=== PATIENT | female | born 1950 | race Caucasian/White ===

== ENCOUNTER 2022-02-28 05:37 | Inpatient (IN) | payer OTHER ==
[2022-02-23 09:35] LABS: Absolute Lymphocytes (CBC) 1.5 K/uL (0.7-4.9); Hematocrit 39.4 % (36.0-45.0); Lymphocytes % 20.4 % (15.3-44.8); MPV 7.5 fL (7.6-11.3); RBC Red Blood Cell Count 4.39 M/uL (3.86-4.86)
[2022-02-23 09:36] LABS: Protime INR 0.99
[2022-02-23 09:46] LABS: Albumin 3.7 g/dL (3.4-5.0); Bilirubin Total 0.5 mg/dL (0.2-1.0); Potassium 3.9 mmol/L (3.5-5.1); Protein, Total 7.4 g/dL (6.4-8.2)
[2022-02-23 09:48] LABS: Urine Appearance CLEAR (Clear); Urine Bilirubin NEGATIVE (Negative); Urine Blood NEGATIVE (Negative); Urine Color YELLOW (Yellow); Urine Glucose NEGATIVE (Negative); Urine Specific Gravity 1.015 (1.005-1.030); Urine pH 5.5 (5.0-7.0)
[2022-02-23 09:49] LABS: Urine Microscopic Reflex NO UMIC; Urine Protein NEGATIVE (Negative); Urine Urobilinogen 0.2 mg/dL (0.2-1.0)
--- NOTE | 2022-02-23 09:49 | RAD REPORT ---
EXAM DESCRIPTION: RAD - Chest Pa And Lat (2 Views) - 02/23/2022 9:34 am CLINICAL HISTORY: Pre op pending hip replacement COMPARISON: None TECHNIQUE: Frontal and lateral views of the chest were obtained. FINDINGS: The lungs are clear of failure, infiltrate or mass. Mild prominence of the interstitial pa ttern is baseline. Heart size is normal and central vasculature is within normal limits. No pleural effusion or pneu mothorax seen. No acute bone findings seen. Mid and lower thoracic spine degenerative changes are pr esent. Upper lumbar surgical hardware is partially imaged on the lateral view. Patient has neural sti mulator wires in the lower thoracic central canal. No acute aortic finding. IMPRESSION: No acute cardiopulmonary process. Nonacute findings detailed in the body of the report.
[2022-02-28] MEDS ORDERED: NA CHLORIDE 0.9% 1,000 ML ONE ×2 (05:59→10:48)
[2022-02-28] MEDS ORDERED: FENTANYL CITR 100 MCG/2 ML ONE (06:05)
[2022-02-28] MEDS ORDERED: LIDOCAINE 1% MPF 5 ML VIAL ONE (06:05)
[2022-02-28] MEDS ORDERED: BUPIVACAINE 0.75% (PF) 2 ML SP ONE (06:05)
[2022-02-28] MEDS ORDERED: CELECOXIB 100 MG CAPSULE ONE (06:16)
[2022-02-28] MEDS ORDERED: Oxycodone HCl/Acetaminophen 1 TAB TAB ONE (06:17)
[2022-02-28] MEDS ORDERED: GABAPENTIN 100 MG CAP ONE (06:17)
[2022-02-28] MEDS ORDERED: ACETAMINOPHEN 500 MG TAB ONE (06:17)
[2022-02-28] MEDS ORDERED: ROPLVACAINE HCL 40 ML ONE (06:43)
[2022-02-28] MEDS ORDERED: dexAMETHasone 10 MG/ML VIAL ONE (06:43)
[2022-02-28] MEDS ORDERED: propofoL 200 MG/20 ML VIAL IV ONE ×4 (06:50→10:02)
[2022-02-28] MEDS ORDERED: MIDAZOLAM HCL 2 MG/2 ML INJ ONE (06:51)
[2022-02-28] MEDS ORDERED: LIDOCAINE 2% MPF 5 ML VIAL ONE (06:51)
[2022-02-28] MEDS: CEFAZOLIN SODIUM 1 GM/VIAL ONE ×2 (07:32→07:48)
[2022-02-28] MEDS: TRANEXAMIC ACID 1,000 MG/10 ML VIAL IV ONE ×3 (07:32→07:50)
--- NOTE | 2022-02-28 09:42 | RAD REPORT ---
EXAM DESCRIPTION: RAD - Hip Right 1 View - 02/28/2022 9:36 am CLINICAL HISTORY: HARDWEAR PLACEMENT COMPARISON: No comparisons FINDINGS/IMPRESSION: Single intraoperative fluoroscopic image submitted. The right acetabular compon ent is intact. The femoral component appears subluxed superiorly. No periprosthetic fracture identifi ed.
[2022-02-28] MEDS ORDERED: DOCUSATE NA 100 MG CAP PO PRN (10:17)
[2022-02-28] MEDS ORDERED: ONDANSETRON 4 MG/2 ML VIAL IV PRN (10:17)
--- NOTE | 2022-02-28 10:17 | P.BOP ---
Preoperative diagnosis: right hip arthritis Postoperative diagnosis: same Primary procedure: right total hip arthoplasty Estimated blood loss: 200 ccs Anesthesia: Spinal Complications: None Transferred to: Recovery Room
[2022-02-28] MEDS ORDERED: Ringers Lactate 0 ML IV ONE (10:27)
[2022-02-28 11:05] LABS: Hematocrit 34.1 % (36.0-45.0)
[2022-02-28] MEDS: HYDROMORPHONE HCL 1 MG/ML INJ ONE ×2 (11:14→11:20)
--- OUTSIDE RECORDS SUMMARY | 2022-02-28 12:30 | XMS REPORT | Continuity of Care Document ---
:[address] [facility] t Address [address] [place] [address] Care Team Providers Name Role Phone Milagros Stephan Primary Care Physician Doctor Unassigned, [place] Attending Clinician Unavailable Danita Walters Attending Clinician Payers Payer Name Policy Type Policy Number Effective Date Expiration Date S ource Problems Condition Condition Condition Status Onset Resolution Last Treating Co mments Source Name Details Category Date Date Treatment Clinician Date No known No known Disease Unive rs active active ity of problems problems [facility] Allergies, Adverse Reactions, Alerts Allergy Allergy Status Severity Reaction(s) Onset Inactive Treating Comm ents Source Name Type Date Date Clinician Adhesive Propensi Active Rash 2020-10 Univer s [place] ty to 0-19 ity of icones adverse 00:00: [place] reaction 00 Medical s [place] Alprazol Propensi Active Swelling legs Univ ers am ty to 9-22 ity of adverse 00:00: [place] reaction 00 Medical s [place] Social History Social Habit Start Date Stop Date Quantity Comments Source Exposure to 2022-02-04 2022-02-14 Not sure [facility] SARS-CoV-2 (event) 00:00:00 10:21:00 Medica l [place] Tobacco Comment 2021-07-26 2021-07-26 half ppd [facility] 00:00:00 00:00:00 Medical [place] Tobacco use and 2021-01-10 2021-01-10 Never used [facility] exposure 00:00:00 00:00:00 Medical Branch Sex Ass[birth year] At [birth year] [facility] 00:00:00 00:00:00 Medical Branch Smoking Status Start Date Stop Date Source Current every day smoker 2021-01-10 00:00:00 [facility] [place] [facility] Medications Ordered Filled Start Stop Current Ordering Indication Dosage Frequency Signature Comments Components Source Medication Medication Date Date Medication? Clinician (SIG) Name Name diclofenac Yes 50mg Take 50 mg U nivers 50 mg EC 5-10 by mouth 2 ity o f tablet 10:48: (two) [place] [address] times Medical daily. Branch gabapentin 0 Yes 600mg Take 600 Un eliseo ER 300 mg 5-10 mg by ity of tablet, 10:48: mouth at [place] [address] bedtime. Medical release 24 Branch hr DULoxetine 2021- Yes Take by Uni vers 30 mg CDRS 5-10 mouth ity of 10:48: daily. Medical Branch atorvastati 0 Yes 40mg Take 40 mg Univers n 40 mg 5-10 by mouth ity of tablet 10:48: at [place] [address] bedtime. Medical Branch diltiazem 2021-0 Yes 120mg Take 120 Uni vers XR 120 mg 5-10 mg by ity of 24 hr 10:48: mouth [place] capsule 04 daily. Medical Branch amLODIPine 2021-0 Yes 10mg Take 10 mg U nivers 10 mg 5-10 by mouth ity of tablet 10:48: daily. Medical Branch diclofenac 2021- Yes 50mg Take 50 mg U nivers 50 mg EC 5-10 by mouth 2 ity o f tablet 10:48: (two) [place] [address] times Medical daily. Branch gabapentin Yes 600mg Take 600 Un eliseo ER 300 mg 5-10 mg by ity of tablet, 10:48: mouth at [place] [address] bedtime. Medical release 24 Branch hr DULoxetine 2021-0 Yes Take by Uni vers 30 mg CDRS 5-10 mouth ity of 10:48: daily. Medical Branch atorvastati 2021-0 Yes 40mg Take 40 mg Univers n 40 mg 5-10 by mouth ity of tablet 10:48: at [place] [address] bedtime. Medical Branch diltiazem 2021-0 Yes 120mg Take 120 Uni vers XR 120 mg 5-10 mg by ity of 24 hr 10:48: mouth [place] capsule 04 daily. Medical Branch amLODIPine Yes 10mg Take 10 mg U nivers 10 mg 5-10 by mouth ity of tablet 10:48: daily. [address] omeprazole 2020-10 Yes 20mg Take 20 mg U nivers 20 mg 0-20 by mouth ity of capsule 13:55: daily. [address] olmesartan 2020-10 Yes 40mg Take 40 mg U nivers 40 mg 0-20 by mouth ity of tablet 13:55: daily. [address] metoprolol 2020-10 Yes 25mg Take 25 mg U nivers succinate 0-20 by mouth ity of XL 25 mg 24 13:55: [place]. [place] hr tablet 08 [facility] insulin 2020-10 Yes 48U inject 48 Unive rs glargine 0-20 Units ity of (LANTUS 13:55: under the [place] U-100 08 skin at [facility] INSULIN) bedtime. Branch 100 unit/mL injection omeprazole 2020-10 Yes 20mg Take 20 mg U nivers 20 mg 0-20 by mouth ity of capsule 13:55: daily. [address] olmesartan 2020-10 Yes 40mg Take 40 mg U nivers 40 mg 0-20 by mouth ity of tablet 13:55: daily. [address] metoprolol 2020-10 Yes 25mg Take 25 mg U nivers succinate 0-20 by mouth ity of XL 25 mg 24 13:55: [place]. [place] tablet 08 [facility] insulin 2020-10 Yes 48U inject 48 Unive rs glargine 0-20 Units ity of (LANTUS 13:55: under the [place] U-100 08 skin at [facility] INSULIN) bedtime. Branch 100 unit/mL injection naproxen 2020-0 Yes 550mg Take 1 Uni vers sodium 9-22 tablet by ity of (ANAPROX 00:00: mouth 2 [place] DS) 550 mg 00 (two) Medical tablet times [place] daily with meals. methylPREDN 2020-0 Yes Take by Univers ISolone 9-22 mouth ity of (MEDROL, 00:00: SEE-INSTRU [place] JOSE,) 4 mg 00 CTIONS. Medica l tablets follow Branch package directions naproxen 2020-0 Yes 550mg Take 1 Uni vers sodium 9-22 tablet by ity of (ANAPROX 00:00: mouth 2 [place] DS) 550 mg 00 (two) Medical tablet times [place] daily with meals. methylPREDN 2020-0 Yes Take by [facility] ISolone 06-29 mouth ity of (MEDROL, 00:00: SEE-INSTRU [place] as JOSE,) 4 mg 00 CTIONS. Medica l tablets follow Branch package directions Immunizations Ordered Filled Immunization Date Status Comments [facility] e Immunization Name Name SARS-COV-2 COVID-19 2021-09-25 Completed Unive rsity of PFIZER VACCINE 00:00:00 [facility] SARS-COV-2 COVID-19 2021-09-25 Completed Unive rsity of PFIZER VACCINE 00:00:00 [facility] Td 2021-06-09 Completed [facility] 00:00:00 [facility] Td 2021-06-09 Completed [facility] 00:00:00 [facility] SARS-COV-2 COVID-19 2021-03-14 Completed Unive rsity of PFIZER VACCINE 00:00:00 [facility] SARS-COV-2 COVID-19 2021-03-14 Completed Unive rsity of PFIZER VACCINE 00:00:00 [facility] SARS-COV-2 COVID-19 2021-02-21 Completed Unive rsity of PFIZER VACCINE 00:00:00 [facility] SARS-COV-2 COVID-19 2021-02-21 Completed Unive rsity of PFIZER VACCINE 00:00:00 [facility] Vital Signs Vital Name Observation Time Observation Value Comments Source Systolic blood 2022-02-14 15:47:00 114 mm[Hg] Univer sity of pressure [facility] Diastolic blood 2022-02-14 15:47:00 70 mm[Hg] Unive rsity of pressure [facility] Heart rate 2022-02-14 15:47:00 86 /min [facility] Body temperature 2022-02-14 15:47:00 36.67 [place] Respiratory rate 2022-02-14 15:47:00 16 /min [facility] Body height 2022-02-14 15:47:00 149.9 cm [facility] Body weight 2022-02-14 15:47:00 82.555 kg Universi ty of [facility] BMI 2022-02-14 15:47:00 36.76 kg/m2 Universi ty [facility] Oxygen saturation in 2022-02-14 15:47:00 98 /min [facility] Arterial blood by [facility] Pulse oximetry [place] Procedures Procedure Date / Time Performed Performing Clinician Sourc e EXTERNAL PROVIDER 2022-02-25 05:01:00 Doctor Unassigned, No Univ [facility] RECORDS Name Medical Branch Encounters Start End Encounter Admission Attending Care Care Encounter Source Date/Time Date/Time Type Type Clinicians Facility Department ID 2021-12-28 Outpatient [facility] [id number] Common 09:55:06 Spirit - [facility] 2022-02-25 2022-02-25 Orders Doctor ANETA [id number] Univers 00:00:00 00:00:00 Only Unassigned, DON [id number] ity of [place] [facility] [id number] Asim as [id number] [place] [address] Branch 2022-02-14 2022-02-14 Office NATALIE Lerner [id number] Univers 11:00:00 11:30:00 Visit [facility] [id number] i ty of CLEAR [id number] [place] URRUTIA [id number] [place] [address] Branch OFFICE BUILDING Results This patient has no known results.
[2022-02-28] MEDS ORDERED: D50W 25 GM/50 ML SYRINGE IV PRN (15:19)
[2022-02-28] MEDS ORDERED: GLUCAGON 1 MG/VIAL IM PRN (15:19)
--- NOTE | 2022-02-28 15:29 | P.CNS ---
Date of Consult: 02/28/22 Reason for Consult: Medical Management Requesting Physician: Diaz Londono Chief Complaint: Right Hip pain History of Present Illness: Patient is 71-year-old female with a past medical history significant for CKD3, DM 2, HLD, hypertension, GERD, osteoarthritis, [place] who presented to the hospital for right hip replacement. Patient has been having persistent right hip pain that has not responded to conservative therapies. Pain has become debilitating. Patient agreed with her orthopedic surgeon to have surgery and patient subsequently had a right total hip replacement. Patient successfully tolerated the right hip arthroplasty surgery. Patient currently rates right hip pain as 8/10 in severity and described pain as aching in quality. Patient denies any other signs or symptoms. Symptoms are aggravated or relieved by nothing. The hospitalist team was consulted for medical management. Allergies adhesive tape Allergy (Verified 02/23/22 08:37) Rash alprazolam [From Xanax] Allergy (Verified 02/23/22 08:37) Leg Swelling Home Medications: Amlodipine Besylate 10 mg PO BEDTIME 02/23/22 Diclofenac Sodium 100 mg PO BEDTIME 02/23/22 Dulaglutide [Trulicity] 1.5 mg SQ EVERY 7TH DAY 02/23/22 Duloxetine HCl 30 mg PO BEDTIME 02/23/22 Empagliflozin [Jardiance] 25 mg PO DAILY WITH BREAKFAST 02/23/22 Gabapentin 600 mg PO BEDTIME 02/23/22 Hydroxychloroquine [Plaquenil] 200 mg PO BID 02/23/22 Insulin Glargine,Hum.rec.anlog [Lantus] 40 unit SQ BEDTIME 02/23/22 Metoprolol Succinate [Toprol Xl] 25 mg PO BEDTIME 02/23/22 Olmesartan Medoxomil [Benicar] 40 mg PO BEDTIME 02/23/22 Omeprazole 20 mg PO BEDTIME 02/23/22 - Past Medical/Surgical History Diabetic: Yes -: stage 3 kidney disease -: diabetes -: hypertension -: hypercholesterolemia -: arthritis -: GERD -: back surgery -: neck surgery -: bilateral carpal tunnel -: appendectomy -: nasal fracture surgery -: cyst removal from top of head - Family History Father Medical History: Heart disease, Other (see notes) Notes: heart attack, abdominal aneurysm Mother Medical History: Other (see notes) Notes: Parkinson's Sister Medical History: Diabetes - Social History Smoking Status: Current every day smoker Smoking therapy provided: Yes Patient receptive to therapy: Yes Alcohol use: No CD- Drugs: No Caffeine use: Yes Place of Residence: Home Review of Systems General: Unremarkable Eyes: Unremarkable Respiratory: Unremarkable Cardiovascular: Unremarkable Gastrointestinal: Unremarkable Genitourinary: Unremarkable Musculoskeletal: Other (Right hip pain ) Neurological: Unremarkable Lymphatics: Unremarkable Physical Examination Temp Pulse Resp BP Pulse Ox 96.5 F L 81 18 139/62 93 02/28/22 12:53 02/28/22 12:53 02/28/22 12:53 02/28/22 12:53 02/28/22 12:53 General: Alert, Oriented x3 HEENT: PERRLA Neck: Supple, 2+ carotid pulse no bruit, Without JVD or thyroid abnormality Respiratory: Clear to auscultation bilaterally, Normal air movement Cardiovascular: Normal pulses, Regular rate/rhythm Capillary refill: <2 Seconds Gastrointestinal: Normal bowel sounds, Soft and benign Musculoskeletal: Tenderness (Right hip) Integumentary: No rashes, No breakdown, No significant lesion Neurological: Normal speech, Normal reflexes 2+, Normal affect Lymphatics: No axilla or inguinal lymphadenopathy Laboratory Data (last 24 hrs) 02/28/22 10:59: Hgb 12.0, Hct 34.1 L Conclusions/Impression: -- Right hip pain. Status post right total hip arthroplasty. Surgeon on board. PT tlal. Will await further recommendation from orthopedic surgeon. Continue supportive care. --Acute pain\osteoarthritis. We will manage pain on current pain medication regimen. --DM2 With neuropathy. BS monitoring with sliding scale insulin. Continue gabapentin for her neuropathy. --Hypertension. Stable. Continue home medications. --GERD. Continue home medications. --HLD. Continue home medication. --Nicotine dependence. Patient placed on nicotine patch and counseled on tobacco cessation. --CKD 3A. Baseline functions unknown. We will continue to monitor renal functions. -- History of LA. Continue aspirin, statin. --Class II obesity. Likely secondary to sedentary lifestyle and excess calories intake. Patient counseled on weight reduction, diet and exercise therapy --Social service consult initiated for discharge planning.. Patient reports that she lives alone and will need some help. --DVT prophylaxis with SCDs . Physician Review: Patient Assessed, Agree with Above Assessment and Plan Critical Care: No
[2022-02-28] MEDS ORDERED: D10W 125 ML IV PRN (15:42)
[2022-02-28] MEDS: INSULIN -REGULAR HUMAN 50 UNIT/0.5 ML ML SQ SCH ×2 (16:30→20:54)
[2022-02-28] MEDS: HYDROCODONE/APAP 7.5/325 MG TAB PO PRN (17:20)
[2022-02-28] MEDS: CEFAZOLIN 1 GM in NA CHLORIDE 0.9% 50 ML IVPB SCH (17:21)
[2022-02-28 17:41] LABS: Hematocrit 39.8 % (36.0-45.0)
[2022-02-28 19:00] VITALS: BMI 36.7
[2022-02-28] MEDS: PANTOPRAZOLE 40MG TABLET PO SCH (20:53)
[2022-02-28] MEDS: DULOXETINE 30 MG CAP PO SCH (20:53)
[2022-02-28] MEDS: GABAPENTIN 300 MG CAP PO SCH (20:53)
[2022-02-28] MEDS: METOPROLOL XL 25 MG TAB PO SCH (20:54)
[2022-02-28] MEDS: INSULIN GLARGINE 100 UNIT/ML SQ SCH (20:55)
--- NOTE | 2022-02-28 20:57 | OP ---
Date of Procedure: 02/28/2022 Surgeon: Diaz Londono MD Preoperative Diagnosis: Severe right hip arthritis. Postoperative Diagnosis: Severe right hip arthritis. Procedure: Right total hip arthroplasty using the [place] system and dual mobility bearing. Estimated Blood Loss: 200 cc. There were no complication. Indication For Operation: Ms. Dupont is a patient who came to see me with complaints of pain in the groin. She has had multiple spinal surgeries, however. Pain appears to be most consistent with pain generated from the hip. She is noted to have a hip flexion contracture as well as very limited inte rnal and external rotation. X-rays demonstrate significant degenerative changes of the hip. It shou ld be noted that she is only 4 feet 11 inches as well. She has tried conservative management; jessenia hudson, the pain is more or less debilitating and risks, benefits, and alternatives of total hip arthropla sty have been discussed with her. She states she understands things as presented and wished to proce ed. Description Of Procedure: Patient was taken to the operating room and placed in supine position. Ge neral anesthesia was obtained by staff. Following this, she was rolled left side down with an axilla ry roll. She was then properly positioned using hip positioners. It should be noted that her hip ma intains approximately 5 degrees hip flexion contracture, making it somewhat difficult with abduction as well as rotation. This makes positioning of her hip a little difficult. However, her right lower extremity was then prepped and draped in the usual sterile fashion. After this, a posterolateral in cision was then taken down carefully through skin and soft tissues, a significant amount of adipose t issue. However, the correct plane was identified and a small incision was made within the fascia. T he gluteal tendon was palpated to ensure correct position. This incision was then carried up to the tip of the greater trochanter and then curved gently posteriorly. After this, the sciatic nerve was palpated. It was noted to be superficial to the external rotators as an anatomic variant. Great car e was taken to protect this throughout the case and is recognized essentially immediately and the Nancy rnley was placed carefully. After this, the external rotators and capsule were then taken down caref dyanaly and tagged for later repair. The superior aspect of the labrum as well as superior anterior asp ect of the labrum was quite hypertrophic. However, the labrum was removed circumferentially. It katy uld be noted that the bursa is somewhat adhered anteriorly and after the hip was dislocated and the n eleno cut was made in standard fashion, the head was removed. After this, the soft tissue within the a cetabulum was then removed. She is still somewhat tight anteriorly. A small amount of capsule was r eleased, however, did not want to be overly aggressive. After this, the head was measured and it was then reamed up to a size 47 where we had good circumferential bleeding bone. The cup was then place d in standard fashion. Attention was then turned to the femur and the preparing box tender was used followed b y the canal-finding reamer followed by sequential broaching to a size 3. This appeared to fit very w ell. An x-ray was taken at this point, and the components were evaluated. The cut might be slightly more vertical than I would like. However, I believe it matches the anatomy well and appears good wi th visualization. There also may be some pelvic obliquity, which changes the alignment. The stem it self appeared to fill very good and decision was made to continue along with this set up. The monito r was then placed. Final stem was then placed down. It was trialed with the standard ball, which wa s the shortest. We could use. It was somewhat difficult to relocate it with the hip in extension. However, bringing the hip off the flexion causes a significant amount of loosening allowed for reloca tion. Hip was able to come back to approximately 10 degrees past neutral with some over pressure ext ending to approximately 3-5 degrees flexion without any over pressure. There was found to be no late ral shuck or inferior shuck. There was consideration given to the following possibilities, which wer e perhaps further loosening of the anterior capsule or hip flexors. It was decided this is most like ly a physiological contraction of the tissues and felt that this would be better served without furth er loosening of the stabilizers of the hip. Also, consideration was made for perhaps replacing this with a shorter neck cut and perhaps taking the stem deeper probably this being a size down. However, this is also discounted as this may cause instability especially posteriorly. It does come up to gr eater than 90 degrees, full adduction, internal rotation to at least 45 degrees before signs of dislo cation and it was decided that we will use this as our final construct, well aware that this may be s lightly long as it is difficult to mixer runner and also understanding that there is a hip flexion contractu re, perhaps associated with significant anterior pelvic tilt as this does appear to be physiologic re lease for her. After this, the trial ball was removed. The final ball was then tapped into place. It was then relocated in the hip. This has a same range of motion and instability. The wound was co piously irrigated and the external rotators and capsule were then repaired back to the greater trocha nter via bone tunnels with care taken not to impinge upon the sciatic nerve. The wound was again irr igated. The fascia was closed in a watertight fashion using heavy Vicryl sutures. Skin was then kirstie sed using Vicryl sutures, followed by abdirizak. Patient was then placed in Aquacel dressing, awakened , and taken to recovery room. /SHANE Voice ID: [id number] Report ID: [id number]
[2022-02-28] MEDS: HYDROXYCHLOROQUINE 200MG TAB PO SCH (20:58)
[2022-02-28] MEDS ORDERED: AMLODIPINE 10 MG TAB PO SCH (21:00)
[2022-02-28] MEDS ORDERED: INSULIN GLARGINE 100 UNIT/ML SQ SCH (21:00)
[2022-02-28] MEDS ORDERED: VALSARTAN 160 MG TAB PO SCH (21:00)
[2022-02-28] MEDS ORDERED: HYDRALAZINE HCL 20 MG/ML VIAL IV PRN (23:46)
[2022-03-01] MEDS: CEFAZOLIN 1 GM in NA CHLORIDE 0.9% 50 ML IVPB SCH ×2 (01:36→09:24)
[2022-03-01] MEDS: HYDROCODONE/APAP 7.5/325 MG TAB PO PRN ×3 (01:39→13:46)
[2022-03-01 04:10] LABS: Absolute Lymphocytes (CBC) 0.7 K/uL (0.7-4.9); Hematocrit 34.5 % (36.0-45.0); Lymphocytes % 8.1 % (15.3-44.8); MPV 7.9 fL (7.6-11.3); RBC Red Blood Cell Count 3.76 M/uL (3.86-4.86)
[2022-03-01 04:18] LABS: Potassium 4.8 mmol/L (3.5-5.1)
[2022-03-01] MEDS: INSULIN -REGULAR HUMAN 50 UNIT/0.5 ML ML SQ SCH ×4 (07:30→21:33)
[2022-03-01] MEDS: (Empagliflozin [Jardiance] 25 MG Tablet) PO SCH (08:00)
[2022-03-01] MEDS ORDERED: HYDROXYCHLOROQUINE 200MG TAB PO SCH (09:00)
[2022-03-01] MEDS: ENOXAPARIN 40 MG/0.4 ML SQ SCH (09:24)
[2022-03-01] MEDS: NICOTINE 21 MG/PAT TD SCH (09:25)
[2022-03-01] MEDS: HYDROXYCHLOROQUINE 200MG TAB PO SCH ×2 (09:25→21:40)
--- NOTE | 2022-03-01 09:36 | P.PN ---
Subjective Date of Service: 03/01/22 Chief Complaint: Right Hip pain Subjective: No new changes, Tolerating diet Physical Examination - Vital Signs Temperature: 98.2 F Blood Pressure: 98/34 Pulse: 89 Respirations: 18 Pulse Ox (%): 98 - Physical Exam General: Alert, In no apparent distress, Oriented x3, Obese HEENT: Atraumatic, Normocephalic, PERRLA Neck: Supple, 2+ carotid pulse no bruit, JVD not distended Respiratory: Clear to auscultation bilaterally, Normal air movement Cardiovascular: No edema, Normal pulses, Regular rate/rhythm, Normal S1 S2 Gastrointestinal: Normal bowel sounds, Soft and benign, Non-distended Musculoskeletal: No clubbing, No swelling, Other (clean dsg over right hip ) Neurological: Normal speech, Normal strength at 5/5 x4 extr, Normal tone - Studies Laboratory Data (last 24 hrs) 03/01/22 03:27: Sodium 137, Potassium 4.8, BUN 15, Creatinine 1.31 H, Glucose 199 H 03/01/22 03:27: WBC 8.8 D, Hgb 11.7 L, Hct 34.5 L, Plt Count 214 D 02/28/22 17:18: Hgb 13.2, Hct 39.8 D 02/28/22 10:59: Hgb 12.0, Hct 34.1 L Assessment And Plan Physician Review: Patient Assessed, Agree with Above Assessment and Plan Physician Review Additional Text: Impression Status post right hip arthroplasty Hypertension Diabetes mellitus History of chronic pain syndrome History of CKD Plan Borderline low blood pressure this a.m., may be due to restart of meds and pain regimen Will hold Diovan/amlodipine Continue metoprolol for now Start gentle IV fluid Restarted on hypoglycemic meds, continue insulin sliding scale Glucose at target Continue anticoagulation per surgical team Continue pain regimen Noted mild elevation in creatinine, follow with hold Diovan gentle IV fluid Time Spent Managing PTS Care (In Minutes): 30
[2022-03-01] MEDS: NA CHLORIDE 0.9% 1,000 ML IV SCH (13:52)
[2022-03-01] MEDS: PANTOPRAZOLE 40MG TABLET PO SCH (21:33)
[2022-03-01] MEDS: GABAPENTIN 300 MG CAP PO SCH (21:33)
[2022-03-01] MEDS: DULOXETINE 30 MG CAP PO SCH (21:33)
[2022-03-01] MEDS: METOPROLOL XL 25 MG TAB PO SCH (21:33)
[2022-03-01] MEDS: INSULIN GLARGINE 100 UNIT/ML SQ SCH (21:52)
[2022-03-02] MEDS: NA CHLORIDE 0.9% 1,000 ML IV SCH (01:08)
[2022-03-02] MEDS: HYDROCODONE/APAP 7.5/325 MG TAB PO PRN ×3 (05:40→16:49)
[2022-03-02 06:16] LABS: Absolute Lymphocytes (CBC) 0.7 K/uL (0.7-4.9); Hematocrit 29.4 % (36.0-45.0); Lymphocytes % 7.9 % (15.3-44.8); RBC Red Blood Cell Count 3.22 M/uL (3.86-4.86)
[2022-03-02 06:28] LABS: Potassium 4.1 mmol/L (3.5-5.1)
[2022-03-02] MEDS: INSULIN -REGULAR HUMAN 50 UNIT/0.5 ML ML SQ SCH ×4 (07:30→21:35)
[2022-03-02] MEDS: (Empagliflozin [Jardiance] 25 MG Tablet) PO SCH (08:00)
--- NOTE | 2022-03-02 08:17 | P.PN ---
Subjective Date of Service: 03/02/22 Chief Complaint: Right Hip pain Subjective: No new changes, No C/O voiced Physical Examination - Vital Signs Temperature: 97.9 F Blood Pressure: 124/53 Pulse: 57 Respirations: 18 Pulse Ox (%): 92 - Studies Laboratory Data (last 24 hrs) 03/02/22 05:40: Sodium 136, Potassium 4.1, BUN 16, Creatinine 1.20, Glucose 191 H 03/02/22 05:40: WBC 9.3, Hgb 9.9 L, Hct 29.4 L, Plt Count 185 Microbiology Data (last 24 hrs): 02/23/22 09:00 Nasopharnyx Coronavirus COVID-19 PCR - Final Assessment And Plan Physician Review: Patient Assessed, Agree with Above Assessment and Plan Physician Review Additional Text: Impression Status post right hip arthroplasty Hypertension Diabetes mellitus History of chronic pain syndrome History of CKD Plan Improved blood pressure, continue to hold Diovan/Norvasc Continue metoprolol Glucose level controlled, continue home hypoglycemic regimen Continue Accu-Cheks with insulin sliding scale We DC IVF, remove Borrego today Follow PT/case management per surgical team Continue wound carehealing well Continue postop prophylaxis anticoagulation per surgical team Continue pain regimen Creatinine trending down, continue to hold Diovan, follow with off IVF today H&H trended down to 9.1, due to postop, start iron tabs DC home/rehab as needed per surgical team Time Spent Managing PTS Care (In Minutes): 30
[2022-03-02] MEDS ORDERED: POLYETHYL GLY 3350 17 GM/DOSE PO PRN (08:18)
[2022-03-02] MEDS: NICOTINE 21 MG/PAT TD SCH (09:18)
[2022-03-02] MEDS: ENOXAPARIN 40 MG/0.4 ML SQ SCH (09:20)
[2022-03-02] MEDS: HYDROXYCHLOROQUINE 200MG TAB PO SCH ×2 (09:24→21:25)
[2022-03-02] MEDS: FERROUS GLUCONATE 324 MG TAB PO SCH ×2 (09:25→16:46)
[2022-03-02] MEDS ORDERED: ALBUMIN HUMAN 25% 100 ML IV ONE (11:45)
--- NOTE | 2022-03-02 16:31 | P.PN ---
Date of Service: 03/02/22 Pt seen, comfortable in bed, Heels nontender, ehl/ta/pf strong. Has some hip pain (expected) when up. Dressing CDI. Has walked in room with PT. D/C planning: Text message sent to me at 9:45 am, regarding peer to peer for snf denial to be done before 12. Not seen as don't constantly carry phone when seeing patients in clinic. Recommend calling phone or calling office to ensure these kind of time sensitive matters addressed. Spoke with patient regarding plan and she will do as best she can in therapy, perhaps try for d/c tomorrow. All questions answered.
[2022-03-02] MEDS: GABAPENTIN 300 MG CAP PO SCH (21:24)
[2022-03-02] MEDS: PANTOPRAZOLE 40MG TABLET PO SCH (21:24)
[2022-03-02] MEDS: METOPROLOL XL 25 MG TAB PO SCH (21:24)
[2022-03-02] MEDS: DULOXETINE 30 MG CAP PO SCH (21:25)
[2022-03-02] MEDS: INSULIN GLARGINE 100 UNIT/ML SQ SCH (21:35)
[2022-03-02 22:10] VITALS: O2SAT 96
[2022-03-03 04:47] LABS: Hematocrit 29.7 % (36.0-45.0)
[2022-03-03] MEDS: INSULIN -REGULAR HUMAN 50 UNIT/0.5 ML ML SQ SCH ×2 (07:30→11:30)
[2022-03-03] MEDS: (Empagliflozin [Jardiance] 25 MG Tablet) PO SCH (08:00)
[2022-03-03] MEDS: NICOTINE 21 MG/PAT TD SCH (09:56)
[2022-03-03] MEDS: ENOXAPARIN 40 MG/0.4 ML SQ SCH (09:56)
[2022-03-03] MEDS: FERROUS GLUCONATE 324 MG TAB PO SCH (09:56)
[2022-03-03] MEDS: HYDROXYCHLOROQUINE 200MG TAB PO SCH (09:57)
[2022-03-03 13:34] VITALS: BP 120/56; TEMP 97.2
--- NOTE | 2022-03-03 15:21 | P.DS ---
Admission Date: 03/02/22 Discharge Date: 03/03/22 Disposition: DC HOME/HOME HEALTH CARE Discharge Condition: FAIR Reason for Admission: Right Hip pain Hospital Course: Patient with hypertension diabetes admitted for right hip arthroplasty electively. Postop she is doing well but having weakness. Attempt to place patient seen rehab was unsuccessful. She will be sent home with home PT. Vital Signs/Physical Exam: Temp Pulse Resp BP Pulse Ox 97.2 F 100 H 16 120/56 L 95 03/03/22 12:00 03/03/22 12:00 03/03/22 12:00 03/03/22 12:00 03/03/22 12:00 General: Alert, In no apparent distress, Oriented x3 HEENT: Atraumatic, Normocephalic, PERRLA Neck: Supple, 2+ carotid pulse no bruit Respiratory: Clear to auscultation bilaterally, Normal air movement Cardiovascular: Normal pulses, Regular rate/rhythm Gastrointestinal: Normal bowel sounds, Soft and benign, Non-distended Integumentary: No tenderness/swelling Neurological: Normal speech, Normal strength at 5/5 x4 extr Laboratory Data at Discharge: WBC 9.3 K/uL (4.3-10.9) 03/02/22 05:40 Hgb 10.0 g/dL (12.0-15.0) L 03/03/22 03:55 Hct 29.7 % (36.0-45.0) L 03/03/22 03:55 Plt Count 185 K/uL (152-406) 03/02/22 05:40 PT 10.9 SECONDS (9.5-12.5) 02/23/22 09:05 INR 0.99 02/23/22 09:05 APTT 35.5 SECONDS (24.3-36.9) 02/23/22 09:05 Sodium 136 mmol/L (136-145) 03/02/22 05:40 Potassium 4.1 mmol/L (3.5-5.1) 03/02/22 05:40 BUN 16 mg/dL (7-18) 03/02/22 05:40 Creatinine 1.20 mg/dL (0.55-1.3) 03/02/22 05:40 Glucose 191 mg/dL (74-106) H 03/02/22 05:40 Total Bilirubin 0.5 mg/dL (0.2-1.0) 02/23/22 09:05 AST 15 U/L (15-37) 02/23/22 09:05 ALT 27 U/L (12-78) 02/23/22 09:05 Alkaline Phosphatase 72 U/L (45-117) 02/23/22 09:05 Home Medications: Amlodipine Besylate 10 mg PO BEDTIME 02/23/22 Dulaglutide [Trulicity] 1.5 mg SQ EVERY 7TH DAY 02/23/22 Duloxetine HCl 30 mg PO BEDTIME 02/23/22 Empagliflozin [Jardiance] 25 mg PO DAILY WITH BREAKFAST 02/23/22 Gabapentin 600 mg PO BEDTIME 02/23/22 Hydroxychloroquine [Plaquenil*] 200 mg PO BID 02/23/22 Insulin Glargine,Hum.rec.anlog [Lantus] 40 unit SQ BEDTIME 02/23/22 Metoprolol Succinate [Toprol Xl*] 25 mg PO BEDTIME 02/23/22 Olmesartan Medoxomil [Benicar] 40 mg PO BEDTIME 02/23/22 Omeprazole 20 mg PO BEDTIME 02/23/22 Diet: Low sodium Followup: Diaz Londono MD [ACTIVE - CAN ADMIT] - (Call to schedule appointment.) Stephan Linares FNP [Primary Care Provider] - (Call to schedule appointment.) Time spent managing pt's care (in minutes): 35
--- NOTE | 2022-03-03 15:23 | P.PN ---
Subjective Date of Service: 03/03/22 Chief Complaint: Right Hip pain Subjective: No new changes Physical Examination - Vital Signs Temperature: 97.2 F Blood Pressure: 120/56 Pulse: 100 Respirations: 16 Pulse Ox (%): 95 - Physical Exam General: Alert, In no apparent distress, Oriented x3, Obese HEENT: Atraumatic, Normocephalic, PERRLA Respiratory: Clear to auscultation bilaterally, Normal air movement Gastrointestinal: Normal bowel sounds, Soft and benign, Non-distended Musculoskeletal: No clubbing, No swelling, Other (clean dsg over right hip) - Studies Laboratory Data (last 24 hrs) 03/03/22 03:55: Hgb 10.0 L, Hct 29.7 L Assessment And Plan Physician Review: Patient Assessed, Agree with Above Assessment and Plan Physician Review Additional Text: Impression Status post right hip arthroplasty Hypertension Diabetes mellitus History of chronic pain syndrome History of CKD Plan Resolve hypertension, can continue Diovan/Norvasc/Toprol Controlled glucose, follow discharge planning Continue PT and OT eval and plan for SNF or dc home with PT Continue wound carehealing well Continue postop prophylaxis anticoagulation per surgical team Continue pain regimen Creatinine trending down, continue to hold Diovan, follow with off IVF today H&H improved to 10, c/w iron tabs
== END 2022-03-03 15:16 | disposition home health service (06) | DRG 470 ==
LOC: OR 05:37 → 2ND 12:27 → OBSVTOIN 03-02 16:24
PROVIDERS: ADMIT Orthopaedic Surgery; ATTEND Orthopaedic Surgery
PROC: 0SR901A Replacement of Right Hip Joint with Metal Synthetic Substitute, Uncemented, Open Approach (ICD-10-PCS; principal; 2022-02-28 07:00)
DX: M16.11 Unilateral primary osteoarthritis, right hip (principal); I12.9 Hypertensive chronic kidney disease with stage 1 through stage 4 chronic kidney disease, or unspecified chronic kidney disease; E11.22 Type 2 diabetes mellitus with diabetic chronic kidney disease; N18.31 Chronic kidney disease, stage 3a; I25.2 Old myocardial infarction; E66.9 Obesity, unspecified; Z68.36 Body mass index [BMI] 36.0-36.9, adult; E11.40 Type 2 diabetes mellitus with diabetic neuropathy, unspecified; F17.210 Nicotine dependence, cigarettes, uncomplicated; E78.5 Hyperlipidemia, unspecified; K21.9 Gastro-esophageal reflux disease without esophagitis; Z20.822 Contact with and (suspected) exposure to COVID-19
CPT/HCPCS: 36415; 71046; 80048; 80053; 81003; 82947; 85014; 85018; 85025; 85610; 85730; 86850; 86900; 86901; 88305; 88311; 97110; 97116; 97161; 97530; G0378; G0379; J0690; J1100; J1170; J1650; J1815; J2250; J2704; J2795; J3010; J7030; J7120; P9047; U0002

== ENCOUNTER 2024-11-08 16:17 | Emergency (ER) | payer OTHER ==
--- OUTSIDE RECORDS SUMMARY | 2024-11-08 16:22 | XMS REPORT | Continuity of Care Document ---
Author Name Unknown Address [address] [facility] [address] [place] [address] [facility] Address [address] [facility] [address] [place] [address] Care Team Providers Care Restaurant Operations Manager Name Role Phone Marco Ajorge Stephan Primary Care Physician [phone] LOTUS SMALL Attending Clinician DIAZ Corona Attending Clinician Unava ilthomas Omagelvai LOG RIDER, Beata Attending Clinician [phone] BEATA VEE Attending Clinician Unavailberonica e Unknown, Attending Attending Clinician Unavailab le RADIOLOGY Attending Clinician Unavailable Radiology Attending Clinician Unavailable SILVIA OWEN Attending Clinician Unavailable SILVIA OWEN Attending Clinician Unavailable EDGAR MICHAEL Attending Clinician Unavailabl christian Michael LOG RIDER, Edgar Attending Clinician [phone] Unknown, Attending Attending Clinician Unavailab RANJIT Maldonado Attending Clinician Ranjit Pickett MD Attending Clinician + [phone] Doctor Unassigned, [place] Attending Clinician U navailable Ebrahim LOG RIDER, Dawsonia Attending Clinician [phone] BRAYDON SANFORD Attending Clinician Unavailable NO LOBO Attending Clinician Unavailable TAVON COY Attending Clinician Unavailable Shayan BUENO, Tavon Attending Clinician [phone] Radiology Attending Clinician Unavailable MEHRAN ANDERSON Attending Clinician Unavailable Mehran Anderson MD Attending Clinician [phone] SHANTA SALGUERO Attending Clinician Unavailable Shanta Salguero DO Attending Clinician [phone] Pob, [facility] Main Attending Clinician UnavailRanjit Costa MD Attending Clinician [phone] RANJIT CERVANTES Attending Clinician UnavailGERMAN Kaplan Attending Clinician Unavail able GERMAN BRADLEY Attending Clinician Unavail able German Bradley MD Attending Clinician [phone] Tania Walters Attending Clinician [phone] TANIA LERNER Attending Clinician Unavailab JABARI Cornejo Attending Clinician Unavailable Jabari Sebastian MD Attending Clinician [phone] Vaccine, Ang Db U[facility] Attending Clinician Unavailab ayala ORTEGACJosselin Attending Clinician [phone] JOSSELIN NIETO Attending Clinician Unavailable Lotus Small MD Attending Clinician + [phone] Only, Adc Test Attending Clinician Unavailable Monique Rangel Attending Clinician [phone] OPAL AGUILAR Attending Clinician Unavail able Diaz Londono MD Attending Clinician [phone] LOTUS SMALL Admitting Clinician DIAZ Corona Admitting Clinician Unava STEPHAN Chavis Admitting Clinician Unavailable SILVIA OWEN Admitting Clinician Unavailable RANJIT MCKEON Admitting Clinician Ranjit Pickett MD Admitting Clinician + [phone] SHANTA SALGUERO Admitting Clinician Unavailable JOSE ALFREDO HANEY Admitting Clinician Unavailable DONA BAUTISTA Admitting Clinician Unavailable JABARI SEBASTIAN Admitting Clinician Unavailable Lotus Small MD Admitting Clinician + [phone] Diaz Londono MD Admitting Clinician [phone] Payers Payer Name Policy Type Policy Number Effective Date Expirati on Date Source [employer] MEDICARE GOLD [id number] 2020 00:00:00 [facility] JALEESA Morejon [id number] 2021 00:00:00 [facility] Problems Condition Name Condition Details Condition Category Status Onset Date Resolution Date Last Treatment Date Treating Clinician Comments Source [id number] Primary osteoarthr itis of right hip Problem [facility] [id number] Pain, joint, knee, right Problem [facility] Surgical follow-up (finding) Aftercare following surgery of the musculoske letal system Problem [facility] 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, right Problem [facility] 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 Problem [facility] [id number] Right hip pain Problem [facility] No known active problems No known active problems Disease [facility] Allergies, Adverse Reactions, Alerts Allergy Name Allergy Type Status Severity Reaction(s) Onset Date Inactive Date Treating Clinician Comments Source Adhesive Tape-Abdi icones Propensi ty to adverse reaction s Active Rash 2020-10 0 00:00: 00 [facility] ADHESIVE TAPE-ABDI ICONES DRUG Active Rash 2020-10 0-19 00:00: 00 [facility] Alprazol am Propensi ty to adverse reaction s Active Swelling 2019-0 9- 00:00: 00 legs [facility] ALPRAZOL AM DRUG INGREDI Active Swelling 0 9-22 00:00: 00 [facility] alprazol am alprazol am Active Unknown [facility] Social History Social Habit Start Date Stop Date Quantity Comments Source Sex Assigned At [facility] Gender identity [facility] Sexual orientation [facility] History of tobacco use Cigarette Smoker [facility] History of Social function 2024-01-03 00:00:00 2024-01-03 00:00:00 [facility] Tobacco use and exposure 2023-11-22 00:00:00 2023-11-22 00:00:00 Smokeless tobacco non-user [facility] Tobacco Comment 2023-04-30 00:00:00 2023-04-30 00:00:00 half ppd [facility] Exposure to SARS-CoV-2 (event) 2022-12-17 00:00:00 2022-12-27 15:13:00 Not sure [facility] Smoking Status Start Date Stop Date Source Smokes tobacco daily 2023-11-22 00:00:00 [facility] Medications Ordered Medication Name Filled Medication Name Start Date Stop Date Current Medication? Ordering Clinician Indication Dosage Frequency Signature (SIG) Comments Components Source NaCl 0.9% (NS) bolus infusion 1,000 mL 05-10 14:30: 00 05-10 15:00 :00 No 1000mL at 999 mL/hr, 1,000 mL, IV Infusion, ONCE, 1 dose, [facility] (PF[facility] 4 mg 05-10 13:45: 00 05-10 14:01 :00 No 4mg 4 mg, Slow IV Push, ONCE, 1 dose, On 05/10/24 at 0845, [facility] acetaminoph en-codeine 300-30 mg tablet 411 00:00: 00 01-20 04:59 :00 No 4647 1{tbl} Take 1 tablet by mouth every 6 (six) hours as needed for Pain (scale 4-6) for up to 3 days. Indication s: acute pain [facility] sodium chloride (NS) injection 01-02 14:35: 00 01-02 14:47 :01 No PRN, Starting on Rosita 01/03/24 at 0935, Until Rosita 01/03/24 at 0947, Routine, Intra-op [facility] neomycin-po lymyxin-dex amethasone (MAXITROL) 3.5 mg/g-10,000 unit/g-0.1 % ophthalmic ointment 01-02 14:35: 00 01-02 14:47 :01 No PRN, Starting on Rosita 01/03/24 at 0935, Until Rosita 01/03/24 at 0947, Routine, Intra-op [facility] gentamicin injection 01-02 14:35: 00 01-02 14:47 :01 No PRN, Starting on Rosita 01/03/24 at 0935, Until Rosita 01/03/24 at 0947, DAREN, Intra-op [facility] dexamethaso ne (DECADRON PHOSPHATE) injection 01-02 14:35: 00 01-02 14:47 :01 No PRN, Starting on Rosita 01/03/24 at 0935, Until Rosita 01/03/24 at 0947, [facility] 01-02 14:35: 00 01-02 14:47 :01 No PRN, Starting on Rosita 01/03/24 at 0935, Until Rosita 01/03/24 at 0947, DAREN, Intra-op Univers [facility] chondroitin sulf-sod hyaluronate (DUOVISC VISCO ELASTIC) intraocular injection 01-02 14:26: 00 01-02 14:47 :01 No PRN, Starting on Rosita 01/03/24 at 0926, Until Rosita 01/03/24 at 0947, Routine, Intra-op [facility] EPINEPHrine (PF) 1:1,000 (1 mg/mL) (ADRENALIN (PF)) injection 01-02 14:25: 00 01-02 14:47 :01 No PRN, Starting on Rosita 01/03/24 at 0925, Until Rosita 01/03/24 at 0947, Routine, Intra-op [facility] balanced salt soln no.2 irrig. (BSS) ophthalmic solution 01-02 14:25: 00 01-02 14:47 :01 No PRN, Starting on Rosita 01/03/24 at 0925, Until Rosita 01/03/24 at 0947, Routine, Intra-op [facility] water for irrigation irrigation solution 01-02 14:20: 00 01-02 14:47 :01 No PRN, Starting on Sun01/03/24 at 0920, Until Rosita 01/03/24 at 0947, Routine, Intra-op [facility] it[facility] tetracaine (PONTOCAINE ) 0.5 % ophthalmic drops 01-02 14:18: 00 01-02 14:47 :01 No PRN, Starting on Rosita 01/03/24 at 0918, Until Rosita 01/03/24 at 0947, Routine, Intra-op [facility] it[facility] eye block syringe 11 mL 01-02 14:17: 00 01-02 14:47 :01 No PRN, Starting on Rosita 01/03/24 at 0917, Until Rosita 01/03/24 at 0947, Intra-op [facility] cyclopent 1%-tropic 1%-phenyl 2.5%-ketor 0.5% (MYDRIATIC #5) ophthalmic solution syringe 0.5 mL 01-02 13:00: 00 01-02 13:15 :00 No .5mL 0.5 mL, Left Eye, ONCE, 1 dose, On Rosita 01/03/24 at 0800, Routine, DSU Pre-op [facility] it[facility] lactated ringers IV infusion 1,000 mL 01-02 13:00: 00 01-02 13:15 :00 No 1000mL at 42 mL/hr, 1,000 mL, IV Infusion, ONCE, 1 dose, On Rosita 01/03/24 at 0800, Routine, DSU Pre-op [facility] omeprazole 20 mg capsule 01-02 10:34: 12 Yes 20mg Take 1 capsule by mouth in the morning. [facility] diclofenac 50 mg EC tablet 01-02 10:34: 12 Yes 50mg Take 1 tablet by mouth as needed. [facility] ity [facility] olmesartan 40 mg tablet 01-02 10:34: 12 Yes 40mg Take 1 tablet by mouth in the morning. [facility] gabapentin ER 300 mg tablet, extended release 24 hr 01-02 10:34: 12 Yes 600mg Take 2 tablets by mouth at bedtime. [facility] metoprolol succinate XL 25 mg 24 hr tablet 01-02 10:34: 12 Yes 25mg Take 1 tablet by mouth every evening. [facility] DULoxetine 30 mg CDRS 01-02 10:34: 12 Yes Take by mouth every evening. [facility] atorvastati n 40 mg tablet 01-02 10:34: 12 Yes 40mg Take 1 tablet by mouth at bedtime. [facility] diltiazem XR 120 mg 24 hr capsule 01-02 10:34: 12 Yes 120mg Take 1 capsule by mouth every evening. [facility] insulin glargine (LANTUS U-100 INSULIN) 100 unit/mL injection 01-02 10:34: 12 Yes 32U inject 32 Units under the skin at bedtime. [facility] amLODIPine 10 mg tablet 01-02 10:34: 12 Yes 10mg Take 1 tablet by mouth every evening. [facility] ofloxacin 0.3 % otic drops 01-02 10:34: 12 Yes 5[drp] Take 5 Drops in the morning and 5 Drops in the evening. [facility] prednisoLON E acetate 1 % ophthalmic suspension drops 01-02 10:34: 12 Yes 1[drp] 1 Drop 4 (four) times daily. [facility] ketorolac 0.5 % ophthalmic solution 01-02 10:34: 12 Yes 1[drp] 1 Drop 4 (four) times daily. [facility] omeprazole 20 mg capsule 01-02 10:34: 12 Yes 20mg Take 1 capsule by mouth in the morning. [facility] diclofenac 50 mg EC tablet 01-02 10:34: 12 Yes 50mg Take 1 tablet by mouth as needed. [facility] metoprolol succinate XL 25 mg 24 hr tablet 01-02 10:34: 12 Yes 25mg Take 1 tablet by mouth every evening. [facility] atorvastati n 40 mg tablet 01-02 10:34: 12 Yes 40mg Take 1 tablet by mouth at bedtime. [facility] amLODIPine 10 mg tablet 01-02 10:34: 12 Yes 10mg Take 1 tablet by mouth every evening. [facility] lactated ringers IV infusion 1,000 mL 12-19 14:15: 00 Yes 1000mL at 50 mL/hr, 1,000 mL, IV Infusion, CONTINUOUS , Starting on Rosita 12/20/23 at 0915, Until Discontinu ed, Routine, PACU [facility] ondansetron (ZOFRAN (PF)) injection 4 mg 12-19 14:03: 46 Yes 4mg 4 mg, Slow IV Push, PRN, 1 dose, Starting on Rosita 12/20/23 at 0903, Until Discontinu ed, Routine, Nausea and Vomiting (N/V), PACU [facility] neomycin-po lymyxin-dex amethasone (MAXITROL) 3.5 mg/g-10,000 unit/g-0.1 % ophthalmic ointment 12-19 13:53: 00 12-19 13:58 :34 No PRN, Starting on Rosita 12/20/23 at 0853, Until Rosita 12/20/23 at 0858, Routine, Intra-op [facility] sodium chloride (NS) injection 12-19 13:52: 00 12-19 13:58 :34 No PRN, Starting on Rosita 12/20/23 at 0852, Until Rosita 12/20/23 at 0858, Routine, Intra-op [facility] gentamicin injection 12-19 13:52: 00 12-19 13:58 :34 No PRN, Starting on Rosita 12/20/23 at 0852, Until Rosita 12/20/23 at 0858, DAREN, Intra-op [facility] dexamethaso ne (DECADRON PHOSPHATE) injection 12-19 13:52: 00 12-19 13:58 :34 No PRN, Starting on Rosita 12/20/23 at 0852, Until Rosita 12/20/23 at 0858, Routine, Intra-op [facility] ceFAZolin (ANCEF) injection 12-19 13:52: 00 12-19 13:58 :34 No PRN, Starting on Rosita 12/20/23 at 0852, Until Rosita 12/20/23 at 0858, DAREN, Intra-op [facility] EPINEPHrine (PF) 1:1,000 (1 mg/mL) (ADRENALIN (PF)) injection 12-19 13:37: 00 12-19 13:58 :34 No PRN, Starting on Rosita 12/20/23 at 0837, Until Rosita 12/20/23 at 0858, Routine, Intra-op [facility] chondroitin sulf-sod hyaluronate (DUOVISC VISCO ELASTIC) intraocular injection 12-19 13:37: 00 12-19 13:58 :34 No PRN, Starting on Rosita 12/20/23 at 0837, Until Rosita 12/20/23 at 0858, Routine, Intra-op [facility] balanced salt soln no.2 irrig. (BSS) ophthalmic solution 12-19 13:37: 00 12-19 13:58 :34 No PRN, Starting on Rosita 12/20/23 at 0837, Until Rosita 12/20/23 at 0858, Routine, Intra-op [facility] water for irrigation irrigation solution 12-19 13:35: 00 12-19 13:58 :34 No PRN, Starting on Rosita 12/20/23 at 0835, Until Rosita 12/20/23 at 0858, Routine, Intra-op [facility] tetracaine (PONTOCAINE ) 0.5 % ophthalmic drops 12-19 13:32: 00 12-19 13:58 :34 No PRN, Starting on Rosita 12/20/23 at 0832, Until Rosita 12/20/23 at 0858, Routine, Intra-op [facility] eye block syringe 11 mL 12-19 13:31: 00 12-19 13:58 :34 No PRN, Starting on Rosita 12/20/23 at 0831, Until Rosita 12/20/23 at 0858, Intra-op [facility] cyclopent 1%-tropic 1%-phenyl 2.5%-ketor 0.5% (MYDRIATIC #5) ophthalmic solution syringe 0.5 mL 12-19 12:15: 00 12-19 12:31 :00 No .5mL 0.5 mL, Right Eye, ONCE, 1 dose, On Rosita 12/20/23 at 0715, Routine, DSU Pre-op [facility] lactated ringers IV infusion 1,000 mL 12-19 12:15: 00 12-19 12:31 :00 No 1000mL at 42 mL/hr, 1,000 mL, IV Infusion, ONCE, 1 dose, On Rosita 12/20/23 at 0715, Routine, DSU Pre-op [facility] omeprazole 20 mg capsule 12-19 09:39: 41 Yes 20mg Take 1 capsule by mouth in the morning. [facility] diclofenac 50 mg EC tablet 12-19 09:39: 41 Yes 50mg Take 1 tablet by mouth as needed. [facility] olmesartan 40 mg tablet 12-19 09:39: 41 Yes 40mg Take 1 tablet by mouth in the morning. [facility] gabapentin ER 300 mg tablet, extended release 24 hr 12-19 09:39: 41 Yes 600mg Take 2 tablets by mouth at bedtime. [facility] metoprolol succinate XL 25 mg 24 hr tablet 12-19 09:39: 41 Yes 25mg Take 1 tablet by mouth in the morning. [facility] DULoxetine 30 mg CDRS 12-19 09:39: 41 Yes Take by mouth every evening. [facility] atorvastati n 40 mg tablet 12-19 09:39: 41 Yes 40mg Take 1 tablet by mouth at bedtime. [facility] diltiazem XR 120 mg 24 hr capsule 12-19 09:39: 41 Yes 120mg Take 1 capsule by mouth every evening. [facility] insulin glargine (LANTUS U-100 INSULIN) 100 unit/mL injection 12-19 09:39: 41 Yes 32U inject 32 Units under the skin at bedtime. [facility] amLODIPine 10 mg tablet 12-19 09:39: 41 Yes 10mg Take 1 tablet by mouth in the morning. [facility] ketoconazol e 2 % cream 11-30 00:00: 00 12-14 05:59 :00 No [id number] Apply to area(s) daily for 14 days. [facility] fluconazole (DIFLUCAN) 150 mg tablet 11-30 00:00: 00 12-07 05:59 :00 No [id number] 150mg Take 1 tablet by mouth every 72 (seventy-t wo) hours for 3 doses. [facility] omeprazole 20 mg capsule 11-22 09:38: 12 Yes 20mg Take 1 capsule by mouth in the morning. [facility] DULoxetine 30 mg CDRS 11-22 09:38: 12 Yes Take by mouth every evening. [facility] diltiazem XR 120 mg 24 hr capsule 11-22 09:38: 12 Yes 120mg Take 1 capsule by mouth every evening. [facility] olmesartan 40 mg tablet 11-22 09:33: 49 Yes 40mg Take 1 tablet by mouth in the morning. [facility] metoprolol succinate XL 25 mg 24 hr tablet 11-22 09:33: 49 Yes 25mg Take 1 tablet by mouth in the morning. [facility] diclofenac 50 mg EC tablet 11-22 09:32: 56 Yes 50mg Take 1 tablet by mouth as needed. [facility] gabapentin ER 300 mg tablet, extended release 24 hr 11-22 09:32: 56 Yes 600mg Take 2 tablets by mouth at bedtime. [facility] atorvastati n 40 mg tablet 11-22 09:32: 56 Yes 40mg Take 1 tablet by mouth at bedtime. [facility] insulin glargine (LANTUS U-100 INSULIN) 100 unit/mL injection 11-22 09:32: 56 Yes 32U inject 32 Units under the skin at bedtime. [facility] amLODIPine 10 mg tablet 11-22 09:32: 56 Yes 10mg Take 1 tablet by mouth in the morning. [facility] mupirocin 2 % ointment 04-30 00:00: 00 Yes [id number] Apply to area(s) 3 (three) times daily. [facility] cephALEXin (KEFLEX) 500 mg capsule 04-30 00:00: 00 05-06 04:59 :00 No [id number] 500mg Take 1 capsule by mouth 4 (four) times daily for 5 days. [facility] levalbutero l (XOPENEX) nebulizer solution 1.25 mg 12-28 01:00: 00 Yes 1.25mg 1.25 mg, Inhalation , TID, First dose on Sun12/27/22 at 2000, Until Discontinu ed, Routine [facility] methylpredn isolone sod succ (SOLU-MEDRO L) injection 125 mg 12-27 23:00: 00 Yes 125mg 125 mg, Intravenou s, Q6H, First dose on Sun12/27/22 at 1800, Until Discontinu ed, Routine [facility] iopamidol (ISOVUE 370-500 mL) injection 70 mL 12-27 22:22: 00 12-27 22:22 :00 No [id number] 70mL 70 mL, Intravenou s, ONCE, 1 dose, On Sun12/27/22 at 1730, Routine [facility] ipratropium (ATROVENT) 0.02 % nebulizer solution 0.5 mg 12-27 19:39: 05 Yes .5mg 0.5 mg, Inhalation , Q4HPRN, Starting on Sun12/27/22 at 1439, Until Discontinu ed, Routine, Wheezing, Shortness of Breath [facility] benzonatate 100 mg capsule 12-27 00:00: 00 Yes [id number] 100mg Take 1 capsule by mouth 3 (three) times daily as needed for Cough. [facility] carisoprodo L 350 mg tablet 05-12 14:44: 40 05-12 00:00 :00 No carisoprod ol 350 mg tablet [facility] TRULICITY 1.5 mg/0.5 mL PnIj 0 04-17 00:00: 00 Yes 1.5mg inject 1 Pen under the skin weekly. [facility] TRULICITY 1.5 mg/0.5 mL PnIj 0 04-17 00:00: 00 Yes 1.5mg inject 1 Pen under the skin weekly. [facility] JARDIANCE 25 mg Tab 2021-0 04-14 00:00: 00 Yes 25mg Take 1 tablet by mouth in the morning. [facility] JARDIANCE 25 mg Tab 2021-0 04-14 00:00: 00 Yes 25mg Take 1 tablet by mouth in the morning. [facility] Xarelto 10 MG Xarelto 10 MG 2021-0 02-28 00:00: 00 No 1{table t} QD Xarelto 10 MG Xarelto 10 MG Xarelto 10 MG 2-0 24 00:00: 00 No 1{table t} QD Xarelto 10 MG HYDROcodone -Acetaminop hen 7.5-325 MG HYDROcodone -Acetaminop hen 7.5-325 MG 2-0 -24 00:00: 00 No 1{table t_as_ne eded} HYDROcodon e-Acetamin ophen 7.5-325 MG Xarelto 10 MG Xarelto 10 MG 2-0 -24 00:00: 00 No 1{table t} QD Xarelto 10 MG HYDROcodone -Acetaminop hen 7.5-325 MG HYDROcodone -Acetaminop hen 7.5-325 MG 2022-0 5-24 00:00: 00 No 1{table t_as_ne eded} HYDROcodon e-Acetamin ophen 7.5-325 MG Xarelto 10 MG Xarelto 10 MG 2-0 5-24 00:00: 00 No 1{table t} QD HYDROcodone -Acetaminop hen 7.5-325 MG HYDROcodone -Acetaminop hen 7.5-325 MG 2-0 5-24 00:00: 00 No 1{table t_as_ne eded} Xarelto 10 MG Xarelto 10 MG 2-0 5-24 00:00: 00 No 1{table t} QD Xarelto 10 MG HYDROcodone -Acetaminop hen 7.5-325 MG HYDROcodone -Acetaminop hen 7.5-325 MG 2-0 -24 00:00: 00 No 1{table t_as_ne eded} HYDROcodon e-Acetamin ophen 7.5-325 MG Xarelto 10 MG Xarelto 10 MG 2021-0 -24 00:00: 00 No 1{table t} QD Xarelto 10 MG HYDROcodone -Acetaminop hen 7.5-325 MG HYDROcodone -Acetaminop hen 7.5-325 MG 2021-0 -24 00:00: 00 No 1{table t_as_ne eded} HYDROcodon e-Acetamin ophen 7.5-325 MG Xarelto 10 MG Xarelto 10 MG 2-0 -24 00:00: 00 No 1{table t} QD Xarelto 10 MG HYDROcodone -acetaminop hen 7.5-325 mg per tablet 2021-0 -24 00:00: 00 Yes TAKE 1 TABLET BY MOUTH EVERY 4 TO 6 HOURS NEEDED FOR PAIN [facility] HYDROcodone -acetaminop hen 7.5-325 mg per tablet 2021-0 -24 00:00: 00 Yes TAKE 1 TABLET BY MOUTH EVERY 4 TO 6 HOURS NEEDED FOR PAIN [facility] DULoxetine 30 mg CDRS 2021-0 10 10:48: 04 Yes Take by mouth daily. [facility] diltiazem XR 120 mg 24 hr capsule 02-14 10:48: 04 Yes 120mg Take 120 mg by mouth daily. [facility] gabapentin ER 300 mg tablet, extended release 24 hr 02-14 10:48: 04 Yes 600mg Take 600 mg by mouth at bedtime. [facility] insulin glargine (LANTUS U-100 INSULIN) 100 unit/mL injection 2020-10 13:55: 08 Yes 48U inject 48 Units under the skin at bedtime. [facility] naproxen sodium (ANAPROX DS) 550 mg tablet 06-29 00:00: 00 Yes 550mg Take 1 tablet by mouth 2 (two) times daily with meals. [facility] methylPREDN ISolone (MEDROL, JOSE,) 4 mg tablets 06-29 00:00: 00 05-18 00:00 :00 No Take by mouth SEE-INSTRU CTIONS. follow package directions [facility] Gabapentin 300 MG Gabapentin 300 MG No Gabapentin 300 MG DULoxetine HCl 30 MG DULoxetine HCl 30 MG No DULoxetine HCl 30 MG Gabapentin 300 MG Gabapentin 300 MG No Gabapentin 300 MG DULoxetine HCl 30 MG DULoxetine HCl 30 MG No DULoxetine HCl 30 MG Gabapentin 300 MG Gabapentin 300 MG No Gabapentin 300 MG Trulicity 1.5 MG/0.5ML Trulicity 1.5 MG/0.5ML No Trulicity 1.5 MG/0.5ML Jardiance 25 MG Jardiance 25 MG No Jardiance 25 MG DULoxetine HCl 30 MG DULoxetine HCl 30 MG No DULoxetine HCl 30 MG Gabapentin 300 MG Gabapentin 300 MG No Gabapentin 300 MG Trulicity 1.5 MG/0.5ML Trulicity 1.5 MG/0.5ML No Trulicity 1.5 MG/0.5ML Olmesartan Medoxomil 40 MG Olmesartan Medoxomil 40 MG No Olmesartan Medoxomil 40 MG Jardiance 25 MG Jardiance 25 MG No Jardiance 25 MG DULoxetine HCl 30 MG DULoxetine HCl 30 MG No DULoxetine HCl 30 MG Atorvastati n Calcium 40 MG Atorvastati n Calcium 40 MG No Atorvastat in Calcium 40 MG Diclofenac Sodium 50 MG Diclofenac Sodium 50 MG No Diclofenac Sodium 50 MG Omeprazole 20 MG Omeprazole 20 MG No Omeprazole 20 MG Gabapentin 300 MG Gabapentin 300 MG No Gabapentin 300 MG amLODIPine Besylate 10 MG amLODIPine Besylate 10 MG No amLODIPine Besylate 10 MG Metoprolol Succinate ER 25 MG Metoprolol Succinate ER 25 MG No Metoprolol Succinate ER 25 MG Trulicity 1.5 MG/0.5ML Trulicity 1.5 MG/0.5ML No Trulicity 1.5 MG/0.5ML Olmesartan Medoxomil 40 MG Olmesartan Medoxomil 40 MG No Olmesartan Medoxomil 40 MG Jardiance 25 MG Jardiance 25 MG No DULoxetine HCl 30 MG DULoxetine HCl 30 MG No Atorvastati n Calcium 40 MG Atorvastati n Calcium 40 MG No Diclofenac Sodium 50 MG Diclofenac Sodium 50 MG No Omeprazole 20 MG Omeprazole 20 MG No Gabapentin 300 MG Gabapentin 300 MG No amLODIPine Besylate 10 MG amLODIPine Besylate 10 MG No Metoprolol Succinate ER 25 MG Metoprolol Succinate ER 25 MG No Trulicity 1.5 MG/0.5ML Trulicity 1.5 MG/0.5ML No Olmesartan Medoxomil 40 MG Olmesartan Medoxomil 40 MG No Jardiance 25 MG Jardiance 25 MG No Jardiance 25 MG DULoxetine HCl 30 MG DULoxetine HCl 30 MG No DULoxetine HCl 30 MG Atorvastati n Calcium 40 MG Atorvastati n Calcium 40 MG No Atorvastat in Calcium 40 MG Diclofenac Sodium 50 MG Diclofenac Sodium 50 MG No Diclofenac Sodium 50 MG Omeprazole 20 MG Omeprazole 20 MG No Omeprazole 20 MG Gabapentin 300 MG Gabapentin 300 MG No Gabapentin 300 MG amLODIPine Besylate 10 MG amLODIPine Besylate 10 MG No amLODIPine Besylate 10 MG Metoprolol Succinate ER 25 MG Metoprolol Succinate ER 25 MG No Metoprolol Succinate ER 25 MG Trulicity 1.5 MG/0.5ML Trulicity 1.5 MG/0.5ML No Trulicity 1.5 MG/0.5ML Olmesartan Medoxomil 40 MG Olmesartan Medoxomil 40 MG No Olmesartan Medoxomil 40 MG Jardiance 25 MG Jardiance 25 MG No Jardiance 25 MG DULoxetine HCl 30 MG DULoxetine HCl 30 MG No DULoxetine HCl 30 MG Immunizations Ordered Immunization Name Filled Immunization Name Date Status Comments Source SARS-COV-2 COVID-19 PFIZER VACCINE 2021-09-25 00:00:00 Completed [facility] SARS-COV-2 COVID-19 PFIZER VACCINE 2021-09-25 00:00:00 Completed [facility] SARS-COV-2 COVID-19 PFIZER VACCINE 2021-09-25 00:00:00 Completed [facility] SARS-COV-2 COVID-19 PFIZER VACCINE 2021-09-25 00:00:00 Completed [facility] SARS-COV-2 COVID-19 PFIZER VACCINE 2021-09-25 00:00:00 Completed [facility] SARS-COV-2 COVID-19 PFIZER VACCINE 2021-09-25 00:00:00 Completed [facility] SARS-COV-2 COVID-19 PFIZER VACCINE 2021-09-25 00:00:00 Completed [facility] SARS-COV-2 COVID-19 PFIZER VACCINE 2021-09-25 00:00:00 Completed [facility] SARS-COV-2 COVID-19 PFIZER VACCINE 2021-09-25 00:00:00 Completed [facility] SARS-COV-2 COVID-19 PFIZER VACCINE 2021-09-25 00:00:00 Completed [facility] SARS-COV-2 COVID-19 PFIZER VACCINE 2021-09-25 00:00:00 Completed [facility] SARS-COV-2 COVID-19 PFIZER VACCINE 2021-09-25 00:00:00 Completed [facility] SARS-COV-2 COVID-19 PFIZER VACCINE 2021-09-25 00:00:00 Completed [facility] TD, NOS 2021-06-09 00:00:00 Completed [facility] TD, NOS 2021-06-09 00:00:00 Completed [facility] TD, NOS 2021-06-09 00:00:00 Completed [facility] TD, NOS 2021-06-09 00:00:00 Completed [facility] TD, NOS 2021-06-09 00:00:00 Completed [facility] Td 2021-06-09 00:00:00 Completed [facility] TD, NOS 2021-06-09 00:00:00 Completed [facility] TD, NOS 2021-06-09 00:00:00 Completed [facility] TD, NOS 2021-06-09 00:00:00 Completed [facility] TD, NOS 2021-06-09 00:00:00 Completed [facility] TD, NOS 2021-06-09 00:00:00 Completed [facility] TD, NOS 2021-06-09 00:00:00 Completed [facility] TD, NOS 2021-06-09 00:00:00 Completed [facility] SARS-COV-2 COVID-19 PFIZER VACCINE 2021-03-14 00:00:00 Completed [facility] SARS-COV-2 COVID-19 PFIZER VACCINE 2021-03-14 00:00:00 Completed [facility] SARS-COV-2 COVID-19 PFIZER VACCINE 2021-03-14 00:00:00 Completed [facility] SARS-COV-2 COVID-19 PFIZER VACCINE 2021-03-14 00:00:00 Completed [facility] SARS-COV-2 COVID-19 PFIZER VACCINE 2021-03-14 00:00:00 Completed [facility] SARS-COV-2 COVID-19 PFIZER VACCINE 2021-03-14 00:00:00 Completed [facility] SARS-COV-2 COVID-19 PFIZER VACCINE 2021-03-14 00:00:00 Completed [facility] SARS-COV-2 COVID-19 PFIZER VACCINE 2021-03-14 00:00:00 Completed [facility] SARS-COV-2 COVID-19 PFIZER VACCINE 2021-03-14 00:00:00 Completed [facility] SARS-COV-2 COVID-19 PFIZER VACCINE 2021-03-14 00:00:00 Completed [facility] SARS-COV-2 COVID-19 PFIZER VACCINE 2021-03-14 00:00:00 Completed [facility] SARS-COV-2 COVID-19 PFIZER VACCINE 2021-03-14 00:00:00 Completed [facility] SARS-COV-2 COVID-19 PFIZER VACCINE 2021-03-14 00:00:00 Completed [facility] SARS-COV-2 COVID-19 PFIZER VACCINE 2021-02-21 00:00:00 Completed [facility] SARS-COV-2 COVID-19 PFIZER VACCINE 2021-02-21 00:00:00 Completed [facility] SARS-COV-2 COVID-19 PFIZER VACCINE 2021-02-21 00:00:00 Completed [facility] SARS-COV-2 COVID-19 PFIZER VACCINE 2021-02-21 00:00:00 Completed [facility] SARS-COV-2 COVID-19 PFIZER VACCINE 2021-02-21 00:00:00 Completed [facility] SARS-COV-2 COVID-19 PFIZER VACCINE 2021-02-21 00:00:00 Completed [facility] SARS-COV-2 COVID-19 PFIZER VACCINE 2021-02-21 00:00:00 Completed [facility] SARS-COV-2 COVID-19 PFIZER VACCINE 2021-02-21 00:00:00 Completed [facility] SARS-COV-2 COVID-19 PFIZER VACCINE 2021-02-21 00:00:00 Completed [facility] SARS-COV-2 COVID-19 PFIZER VACCINE 2021-02-21 00:00:00 Completed [facility] SARS-COV-2 COVID-19 PFIZER VACCINE 2021-02-21 00:00:00 Completed [facility] SARS-COV-2 COVID-19 PFIZER VACCINE 2021-02-21 00:00:00 Completed [facility] SARS-COV-2 COVID-19 PFIZER VACCINE 2021-02-21 00:00:00 Completed [facility] SARS-COV-2 COVID-19 PFIZER VACCINE Unknown Completed [facility] TD, NOS Unknown Completed [facility] SARS-COV-2 COVID-19 PFIZER VACCINE Unknown Completed [facility] TD, NOS Unknown Completed [facility] SARS-COV-2 COVID-19 PFIZER VACCINE Unknown Completed [facility] TD, NOS Unknown Completed [facility] SARS-COV-2 COVID-19 PFIZER VACCINE Unknown Completed [facility] TD, NOS Unknown Completed [facility] SARS-COV-2 COVID-19 PFIZER VACCINE Unknown Completed [facility] TD, NOS Unknown Completed [facility] SARS-COV-2 COVID-19 PFIZER VACCINE Unknown Completed [facility] TD, NOS Unknown Completed [facility] SARS-COV-2 COVID-19 PFIZER VACCINE Unknown Completed [facility] TD, NOS Unknown Completed [facility] SARS-COV-2 COVID-19 PFIZER VACCINE Unknown Completed [facility] TD, NOS Unknown Completed [facility] SARS-COV-2 COVID-19 PFIZER VACCINE Unknown Completed [facility] TD, NOS Unknown Completed [facility] SARS-COV-2 COVID-19 PFIZER VACCINE Unknown Completed [facility] TD, NOS Unknown Completed [facility] SARS-COV-2 COVID-19 PFIZER VACCINE Unknown Completed [facility] TD, NOS Unknown Completed [facility] SARS-COV-2 COVID-19 PFIZER VACCINE Unknown Completed [facility] TD, NOS Unknown Completed [facility] Vital Signs Vital Name Observation Time Observation Value Comments S ource Systolic blood pressure 2024-11-08 16:48:00 115 mm[Hg] [facility] Diastolic blood pressure 2024-11-08 16:48:00 66 mm[Hg] [facility] Heart rate 2024-11-08 16:48:00 91 /min [facility] Body temperature 2024-11-08 16:48:00 36.22 Yolette [facility] Body height 2024-11-08 16:48:00 149.9 cm [facility] Body weight 2024-11-08 16:48:00 78.971 kg [facility] BMI 2024-11-08 16:48:00 35.16 kg/m2 [facility] Oxygen saturation in Arterial blood by Pulse oximetry 2024-11-08 16:48:00 97 /min [facility] Systolic blood pressure 2024-05-10 15:00:00 148 mm[Hg] [facility] Diastolic blood pressure 2024-05-10 15:00:00 73 mm[Hg] [facility] Heart rate 2024-05-10 15:00:00 80 /min [facility] Respiratory rate 2024-05-10 15:00:00 17 /min [facility] Oxygen saturation in Arterial blood by Pulse oximetry 2024-05-10 15:00:00 98 /min [facility] Body temperature 2024-05-10 13:29:00 37.28 Yolette [facility] Body height 2024-05-10 13:29:00 149.9 [facility] 2024-05-10 13:29:00 82.555 kg Univ [facility] BMI 2024-05-10 13:29:00 36.76 kg/m2 Univ [facility] Systolic blood pressure 2024-01-17 20:07:00 123 mm[Hg] [facility] Diastolic blood pressure 2024-01-17 20:07:00 59 mm[Hg] [facility] Heart rate 2024-01-17 20:06:00 78 /min [facility] Body temperature 2024-01-17 20:06:00 36.89 Yolette [facility] Respiratory rate 2024-01-17 20:06:00 18 /min [facility] Body height 2024-01-17 20:06:00 149.9 cm Univ [facility] Body weight 2024-01-17 20:06:00 83.507 kg Univ [facility] BMI 2024-01-17 20:06:00 37.18 kg/m2 [facility] Oxygen saturation in Arterial blood by Pulse oximetry 2024-01-17 20:06:00 98 /min [facility] Heart rate 2024-01-03 15:10:00 80 /min [facility] Respiratory rate 2024-01-03 15:10:00 19 /min [facility] Oxygen saturation in Arterial blood by Pulse oximetry 2024-01-03 15:10:00 98 /min [facility] Systolic blood pressure 2024-01-03 15:09:00 137 mm[Hg] [facility] Diastolic blood pressure 2024-01-03 15:09:00 59 mm[Hg] [facility] Body temperature 2024-01-03 14:48:00 36.44 Yolette [facility] Body height 2023-12-27 22:00:00 149.9 cm Univ [facility] Body weight 2023-12-27 22:00:00 83.462 kg Univ [facility] BMI 2023-12-27 22:00:00 37.16 kg/m2 Univ [facility] Systolic blood pressure 2024-01-03 13:13:00 147 mm[Hg] [facility] Diastolic blood pressure 2024-01-03 13:13:00 65 mm[Hg] [facility] Heart rate 2024-01-03 13:13:00 72 /min [facility] Body temperature 2024-01-03 13:13:00 36.22 Yolette [facility] Respiratory rate 2024-01-03 13:13:00 19 /min [facility] Oxygen saturation in Arterial blood by Pulse oximetry 2024-01-03 13:13:00 96 /min [facility] Body height 2023-12-27 22:00:00 149.9 cm Univ [facility] Body weight 2023-12-27 22:00:00 83.462 kg [facility] BMI 2023-12-27 22:00:00 37.16 kg/m2 [facility] Heart rate 2023-12-20 14:22:00 86 /min [facility] Respiratory rate 2023-12-20 14:22:00 17 /min [facility] Oxygen saturation in Arterial blood by Pulse oximetry 2023-12-20 14:22:00 99 /min [facility] Systolic blood pressure 2023-12-20 14:19:00 137 mm[Hg] [facility] Diastolic blood pressure 2023-12-20 14:19:00 59 mm[Hg] [facility] Body temperature 2023-12-20 13:56:00 36.44 Yolette [facility] Body height 2023-11-22 15:00:00 149.9 [facility] 2023-11-22 15:00:00 82.555 kg [facility] BMI 2023-11-22 15:00:00 36.76 kg/m2 Univ [facility] Heart rate 2023-12-20 14:09:00 80 /min [facility] Respiratory rate 2023-12-20 14:09:00 14 /min [facility] Oxygen saturation in Arterial blood by Pulse oximetry 2023-12-20 14:09:00 99 /min [facility] Systolic blood pressure 2023-12-20 14:04:00 143 mm[Hg] [facility] Diastolic blood pressure 2023-12-20 14:04:00 56 mm[Hg] [facility] Body temperature 2023-12-20 13:56:00 36.44 Yolette [facility] Body height 2023-11-22 15:00:00 149.9 cm Univ [facility] Body weight 2023-11-22 15:00:00 82.555 kg Univ [facility] BMI 2023-11-22 15:00:00 36.76 kg/m2 Univ [facility] Systolic blood pressure 2023-11-30 21:17:00 124 mm[Hg] [facility] Diastolic blood pressure 2023-11-30 21:17:00 70 mm[Hg] [facility] Heart rate 2023-11-30 21:17:00 88 /min [facility] Body temperature 2023-11-30 21:17:00 36.89 Yolette [facility] Respiratory rate 2023-11-30 21:17:00 18 /min [facility] Body height 2023-11-30 21:17:00 149.9 cm Univ [facility] Body weight 2023-11-30 21:17:00 83.689 kg Univ [facility] BMI 2023-11-30 21:17:00 37.26 kg/m2 Univ [facility] Oxygen saturation in Arterial blood by Pulse oximetry 2023-11-30 21:17:00 98 /min [facility] Systolic blood pressure 2023-04-30 22:36:00 139 mm[Hg] [facility] Diastolic blood pressure 2023-04-30 22:36:00 61 mm[Hg] [facility] Heart rate 2023-04-30 22:36:00 87 /min [facility] Body temperature 2023-04-30 22:36:00 36.94 Yolette [facility] Respiratory rate 2023-04-30 22:36:00 15 /min [facility] Body height 2023-04-30 22:36:00 149.9 cm Univ [facility] Body weight 2023-04-30 22:36:00 83.689 kg Univ [facility] BMI 2023-04-30 22:36:00 37.26 kg/m2 [facility] Oxygen saturation in Arterial blood by Pulse oximetry 2023-04-30 22:36:00 97 /min [facility] Systolic blood pressure 2022-12-27 23:00:00 130 mm[Hg] [facility] Diastolic blood pressure 2022-12-27 23:00:00 73 mm[Hg] [facility] Heart rate 2022-12-27 23:00:00 102 /min [facility] Respiratory rate 2022-12-27 23:00:00 15 /min [facility] Oxygen saturation in Arterial blood by Pulse oximetry 2022-12-27 23:00:00 98 /min [facility] Body temperature 2022-12-27 19:32:00 37.22 Yolette [facility] Body weight 2022-12-27 19:32:00 82.555 kg [facility] BMI 2022-12-27 19:32:00 36.76 kg/m2 Univ [facility] Systolic blood pressure 2022-05-12 19:18:00 122 mm[Hg] [facility] Diastolic blood pressure 2022-05-12 19:18:00 57 mm[Hg] [facility] Heart rate 2022-05-12 19:18:00 77 /min [facility] Body height 2022-05-12 19:18:00 149.9 cm Univ [facility] Body weight 2022-05-12 19:18:00 83.462 kg [facility] BMI 2022-05-12 19:18:00 37.16 kg/m2 [facility] Oxygen saturation in Arterial blood by Pulse oximetry 2022-05-12 19:18:00 98 /min [facility] height 2022-04-13 08:15:00 59 [in_i] Commo n [facility] weight 2022-04-13 08:15:00 177 [lb_av] Comm on [facility] temperature 2022-04-13 08:15:00 97.0 [degF] Com mon [facility] bmi 2022-04-13 08:15:00 35.75 kg/m2 Comm on [facility] blood pressure systolic 2022-04-13 08:15:00 116 mm[Hg] [facility] blood pressure diastolic 2022-04-13 08:15:00 67 mm[Hg] [facility] height 2022-03-29 09:00:00 59 [in_i] Commo n [facility] weight 2022-03-29 09:00:00 177 [lb_av] Comm on [facility] bmi 2022-03-29 09:00:00 35.75 kg/m2 Comm on [facility] blood pressure systolic 2022-03-29 09:00:00 134 mm[Hg] [facility] blood pressure diastolic 2022-03-29 09:00:00 82 mm[Hg] [facility] height 2022-03-14 11:00:00 59 [in_i] Commo n [facility] weight 2022-03-14 11:00:00 184 [lb_av] Comm on [facility] bmi 2022-03-14 11:00:00 37.16 kg/m2 Comm on [facility] blood pressure systolic 2022-03-14 11:00:00 132 mm[Hg] [facility] blood pressure diastolic 2022-03-14 11:00:00 80 mm[Hg] [facility] height 2022-02-27 13:15:00 59 [in_i] Commo n [facility] weight 2022-02-27 13:15:00 184 [lb_av] Comm on [facility] bmi 2022-02-27 13:15:00 37.16 kg/m2 Comm on [facility] blood pressure systolic 2022-02-27 13:15:00 138 mm[Hg] [facility] blood pressure diastolic 2022-02-27 13:15:00 62 mm[Hg] [facility] height 2021-12-28 10:30:00 59 [in_i] Commo n [facility] weight 2021-12-28 10:30:00 184 [lb_av] Comm on [facility] bmi 2021-12-28 10:30:00 37.16 kg/m2 Comm on [facility] blood pressure systolic 2021-12-28 10:30:00 120 mm[Hg] [facility] blood pressure diastolic 2021-12-28 10:30:00 70 mm[Hg] [facility] Procedures Procedure Date / Time Performed Performing Clinician Source XR CHEST 2 VW 2024-07-01 18:10:00 Requisition, Paper [facility] EKG-12 LEAD 2024-05-10 15:46:05 Silvia Owen [facility] XR CHEST 2 VW 2024-05-10 14:17:21 Silvia Owen [facility] TROPONIN I 2024-05-10 13:45:00 Silvia Owen [facility] COMP. METABOLIC PANEL ([id number]) 2024-05-10 13:45:00 Silvia Owen [facility] CBC WITH DIFF 2024-05-10 13:45:00 Silvia Owen [facility] XR KNEE 3 VW RIGHT 2024-01-17 21:07:46 Edgar Michael [facility] PHACOEMULSIFICATION OF CATARACT WITH INTRAOCULAR LENS IMPLANT 2024-01-03 14:06:00 RomeroRanjit bills [facility] POCT GLUCOSE (AUTOMATED) 2024-01-03 13:16:00 RomeroRanjit [facility] POCT GLUCOSE (AUTOMATED) 2024-01-03 13:16:00 RomeroRanjit [facility] PHACOEMULSIFICATION OF CATARACT WITH INTRAOCULAR LENS IMPLANT 2023-12-20 13:22:00 RomeroRanjit [facility] POCT GLUCOSE (AUTOMATED) 2023-12-20 12:27:00 RomeroRanjit [facility] POCT GLUCOSE (AUTOMATED) 2023-12-20 12:27:00 Ranjit Mckeon [facility] PATIENT QUESTIONNAIRE 2023-12-20 05:01:00 Doctor Unassigned, [place] [facility] ASSIGNMENT OF BENEFITS 2023-12-11 22:24:19 Doctor Unassigned, [place] [facility] XR ANKLE <3 VW LEFT 2023-03-15 20:49:00 Milagros Stephan [facility] XR FOOT 3+ VW LEFT 2023-03-15 20:49:00 Stephan Linares [facility] BI SCREENING TOMOSYNTHESIS BILATERAL 2023-01-29 14:02:20 Requisition, Paper [facility] CONSENT/REFUSAL FOR DIAGNOSI S AND TREATMENT 2023-01-29 13:23:13 Doctor Unassigned, [place] [facility] ASSIGNMENT OF BENEFITS 2023-01-29 13:22:56 Doctor Unassigned, [place] [facility] CT CHEST PULMONARY ANGIOGRAM 2022-12-27 22:28:[address] [facility] TROPONIN I 2022-12-27 20:15:[address] [facility] COMP. METABOLIC PANEL ([id number]) 2022-12-27 20:15:[address] [facility] CBC WITH DIFF 2022-12-27 20:15:00 Singer Shanta [facility] URINALYSIS 2022-12-27 20:15:[address] [facility] RAPID INFLUENZA A/B 2022-12-27 20:15:00 Shanta Salguero [facility] N-TERMINAL PRO-BNP 2022-12-27 20:15:00 Shanta Salguero [facility] XR CHEST 1 2022-12-27 19:59:08 Shanta Salguero [facility] CONSENT/REFUSAL FOR DIAGNOSI S AND TREATMENT 2022-12-27 19:23:33 Doctor Unassigned, [place] [facility] ASSIGNMENT OF BENEFITS 2022-12-25 14:19:21 Doctor Unassigned, [place] [facility] XR CHEST 2 2022-12-21 15:38:49 Stephan Linares [facility] CONSENT/REFUSAL FOR DIAGNOSI S AND TREATMENT 2022-12-21 15:27:05 Doctor Unassigned, [place] [facility] Encounters Start Date/Time End Date/Time Encounter Type Admission Type Attending [facility] Facility Care Department Encounter ID Source 2022-04-18 12:50:01 Outpatient [facility] [id number] [facility] 2022-04-13 08:14:01 Outpatient [facility]C [facility] [id number] [facility] 2022-03-29 08:51:02 Outpatient [facility]LMLC ST[facility]C [id number] [facility] 2021-12-28 09:55:06 Outpatient ST[facility]MLC ST[facility]C [id number] [facility] 2021-08-09 06:49:24 Outpatient R LOTUS LEE [facility] [place] [id number] [facility] 2021-08-08 20:07:06 Emergency [facility] [id number] [facility] 2021-08-07 08:33:59 Outpatient R DIAZ LONDONO [facility] SOR [id number] [facility] 2024-11-08 00:00:00 2024-11-08 15:33:15 Telephone Beata Vee [facility] [id number] [facility] Systems 2024-11-08 10:20:00 2024-11-08 11:55:28 Outpatient R BEATA VEE [facility] [id number] [facility] 2024-11-08 10:20:00 2024-11-08 11:55:28 Urgent Care Beata Vee Unknown, Attending [facility] 1..840.114 350.1.13.10 4.2.7.2.686 [id number] [facility] 2024-07-01 12:58:56 2024-07-01 23:59:00 Outpatient R RADIOLOGY [facility] [id number] [facility] 2024-07-01 12:58:56 2024-07-01 23:59:00 Hospital Encounter Radiology Radiology [facility] AT [facility] 1..840.114 350.1.13.10 4.2.7.2.686 [id number] [facility] 2024-05-10 08:36:00 2024-05-10 10:48:00 Emergency X SILVIA OWEN ERICCA [facility] ERT [id number] [facility] 2024-05-10 08:36:00 2024-05-10 10:48:00 Emergency Silvia Owen D [facility] AT [facility] 1..840.114 350.1.13.10 4.2.7.2.686 [id number] [facility] 2024-01-17 15:23:22 2024-01-17 23:59:00 [facility] [id number] [facility] 2024-01-17 15:23:22 2024-01-17 23:59:00 [facility] 1.2.840.114 350.1.13.10 4.2.7.2.686 [id number] [facility] 2024-01-17 15:00:00 2024-01-17 15:20:00 Urgent Care Edgar Michael Unknown, Attending [facility] 1.2.840.114 350.1.13.10 4.2.7.2.686 [id number] [facility] 2024-01-03 07:58:00 2024-01-03 10:19:00 Outpatient R RANJIT MCKEON [facility] OPH [id number] [facility] 2024-01-03 07:58:00 2024-01-03 10:19:00 Hospital Encounter Ranjit Mckeon [facility] 1.2.840.114 350.1.13.10 4.2.7.2.686 [id number] [facility] 2024-01-03 09:06:00 2024-01-03 09:42:00 Surgery Ranjit Mckeon [facility] 1.2.840.114 350.1.13.10 4.2.7.2.686 [id number] [facility] 2023-12-20 07:10:00 2023-12-20 09:38:00 Outpatient R RANJIT MCKEON [facility] OPH [id number] [facility] 2023-12-20 07:10:00 2023-12-20 09:38:00 Hospital Encounter Ranjit Mckeon [facility] 1.2.840.114 350.1.13.10 4.2.7.2.686 [id number] [facility] 2023-12-20 08:33:00 2023-12-20 09:09:00 Surgery Ranjit Mckeon [facility] 1.2840.114 350.1.13.10 4.2.7.2.686 [id number] [facility] 2023-12-20 00:00:00 2023-12-20 00:00:00 Orders Only Doctor Unassigned, [place] [facility] 1.2840.114 350.1.13.10 4.2.7.2.686 [id number] [facility] 2023-12-11 00:00:00 2023-12-11 00:00:00 Orders Only Doctor Unassigned, [place] [facility] 1.2840.114 350.1.13.10 4.2.7.2.686 [id number] [facility] 2023-11-30 15:20:00 2023-11-30 15:40:00 Urgent Care Braydon Sanford Unknown, Attending [facility] 1.840.114 350.1.13.10 4.2.7.2.686 [id number] [facility] 2023-11-30 15:20:00 2023-11-30 15:20:00 Outpatient R BRAYDON SANFORD [facility] [id number] [facility] 2023-05-23 14:43:24 2023-05-23 23:59:00 Outpatient R TAVON COY [facility] [id number] [facility] 2023-05-23 14:43:24 2023-05-23 23:59:00 Hospital Encounter Tavon Coy [facility] 1.840.114 350.1.13.10 4.2.7.2.686 [id number] [facility] 2023-05-22 15:42:48 2023-05-22 23:59:00 Outpatient R RADIOLOGY [facility] [id number] [facility] 2023-05-22 15:42:48 2023-05-22 23:59:00 Hospital Encounter Radiology [facility] 1.2840.114 350.1.13.10 4.2.7.2.686 [id number] [facility] 2023-04-30 18:00:00 2023-04-30 18:03:38 Outpatient R JUSITN MEHRAN [facility] [id number] [facility] 2023-04-30 18:00:00 2023-04-30 18:03:38 Urgent Care Justin Mehran Unknown, Attending [facility] 1.2.114 350.1.13.10 4.2.7.2.686 [id number] [facility] 2023-03-15 14:57:14 2023-03-15 23:59:00 Outpatient R RADIOLOGY [facility] [id number] [facility] 2023-03-15 14:57:14 2023-03-15 23:59:00 Hospital Encounter Radiology [facility] 1.20.114 350.1.13.10 4.2.7.2.686 [id number] [facility] 2023-01-29 08:24:07 2023-01-29 23:59:00 Outpatient R RADIOLOGY [facility] [id number] [facility] 2023-01-29 08:24:07 2023-01-29 23:59:00 Hospital Encounter Radiology [facility] 1.20.114 350.1.13.10 4.2.7.2.686 [id number] [facility] 2023-01-29 00:00:00 2023-01-29 00:00:00 Orders Only Doctor Unassigned, [place] [facility] 1.20.114 350.1.13.10 4.2.7.2.686 [id number] [facility] 2022-12-29 00:00:00 2022-12-29 00:00:00 Outpatient R RADIOLOGY [facility] [id number] [facility] 2022-12-28 00:00:00 2022-12-28 00:00:00 Outpatient R RADIOLOGY [facility] [id number] [facility] 2022-12-27 14:35:00 2022-12-27 19:10:00 Emergency X SHANTA SALGUERO [facility] ERT [id number] [facility] 2022-12-27 14:35:00 2022-12-27 19:10:00 Emergency SalgueroShanta [facility] 1.2840.114 350.1.13.10 4.2.7.2.686 [id number] [facility] 2022-12-25 10:00:00 2022-12-25 10:15:00 Millwork Estimator Visit Pob, Adc Lab Main Ranjit Cervantes [facility] 1.2840.114 350.1.13.10 4.2.7.2.686 [id number] [facility] 2022-12-25 10:00:00 2022-12-25 10:00:00 Outpatient R RANJIT CERVANTES [facility] [id number] [facility] 2022-12-25 00:00:00 2022-12-25 00:00:00 Orders Only Doctor Unassigned, [place] [facility] 1.2840.114 350.1.13.10 4.2.7.2.686 [id number] [facility] 2022-12-21 10:29:28 2022-12-21 23:59:00 Outpatient R RADIOLOGY [facility] [id number] [facility] 2022-12-21 10:29:28 2022-12-21 23:59:00 Hospital Encounter Radiology [facility] 1.2.840.114 350.1.13.10 4.2.7.2.686 [id number] [facility] 2022-12-21 00:00:00 2022-12-21 00:00:00 Orders Only Doctor Unassigned, [place] [facility] 1.2.840.114 350.1.13.10 4.2.7.2.686 [id number] [facility] 2022-05-12 14:00:00 2022-05-12 14:56:27 Outpatient R GERMAN BRADLEY HOWARD [facility] [id number] [facility] 2022-05-12 14:00:00 2022-05-12 14:56:27 Office Visit German Bradley [facility] 1.2.840.114 350.1.13.10 4.2.7.2.686 [id number] [facility] 2022-04-21 12:28:13 2022-04-21 23:59:00 Outpatient R RADIOLOGY [facility] [id number] [facility] 2022-04-21 12:28:13 2022-04-21 23:59:00 Hospital Encounter Radiology [facility] 1..840.114 350.1.13.10 4.2.7.2.686 [id number] [facility] 2022-04-13 00:00:00 2022-04-13 00:00:00 NON-BILLAB LE VISIT STLMLC STLMLC [id number] [facility] 2022-03-29 00:00:00 2022-03-29 00:00:00 OFFICE VISIT ESTAB PT LEVEL 3 STLMLC STLMLC [id number] [facility] 2022-03-14 00:00:00 2022-03-14 00:00:00 NON-BILLAB LE VISIT STLMLC STLMLC [id number] [facility] 2022-03-03 00:00:00 2022-03-03 00:00:00 Patient Secure Msg Doctor Unassigned, [place] [facility] 1.2840.114 350.1.13.10 4.2.7.2.686 [id number] [facility] 2022-02-28 00:00:00 2022-02-28 00:00:00 (TEL) ST[facility] [id number] [facility] 2022-02-27 00:00:00 2022-02-27 00:00:00 OFFICE VISIT ESTAB PT LEVEL 3 STLC [facility] [id number] [facility] 2022-02-25 00:00:00 2022-02-25 00:00:00 Orders Only Doctor Unassigned, [place] [facility] 1.84.114 350.1.13.10 4.2.7.2.686 [id number] [facility] 2022-02-14 11:00:00 2022-02-14 11:30:00 Office Visit Tania Lerner [facility] 1.84.114 350.1.13.10 4.2.7.2.686 [id number] [facility] 2022-02-14 11:00:00 2022-02-14 11:00:00 Outpatient R TANIA LERNER [facility] [id number] [facility] 2021-12-30 16:49:07 2021-12-30 23:59:00 Outpatient R RADIOLOGY [facility] [id number] [facility] 2021-12-30 16:49:07 2021-12-30 23:59:00 Hospital Encounter Radiology [facility] 1.2840.114 350.1.13.10 4.2.7.2.686 [id number] [facility] 2021-12-30 00:00:00 2021-12-30 00:00:00 (TEL) STLMLC STLMLC [id number] [facility] 2021-12-30 00:00:00 2021-12-30 00:00:00 Orders Only Doctor Unassigned, [place] [facility] 1.84.114 350.1.13.10 4.2.7.2.686 [id number] [facility] 2021-12-28 00:00:00 2021-12-28 00:00:00 OFFICE VISIT ESTAB PT LEVEL 3 STLMLC STLMLC [id number] [facility] 2021-12-19 00:00:00 2021-12-19 00:00:00 Outpatient R RADIOLOGY [facility] [id number] [facility] 2021-11-22 13:14:01 2021-11-22 23:59:00 Outpatient R RADIOLOGY [facility] [id number] [facility] 2021-11-22 13:14:01 2021-11-22 23:59:00 Hospital Encounter Radiology [facility] 1.84.114 350.1.13.10 4.2.7.2.686 [id number] [facility] 2021-11-02 11:07:23 2021-11-02 23:59:00 Outpatient R PAULJABARI CARRILLO [facility] [id number] [facility] 2021-11-02 11:00:00 2021-11-02 23:59:00 Hospital Encounter Jabari Sebastian [facility] 1.840.114 350.1.13.10 4.2.7.2.686 [id number] [facility] 2021-09-25 10:20:00 2021-09-25 10:30:00 Imm/Inj Visit Vaccine, Ang Db Josselin Pace [facility] 1.2840.114 350.1.13.10 4.2.7.2.686 [id number] [facility] 2021-09-25 10:20:00 2021-09-25 10:20:00 Outpatient R JOSSELIN NIETO [facility] [id number] [facility] 2021-07-27 10:58:00 2021-07-27 13:30:00 Hospital Encounter Lotus Lee [facility] 1.2840.114 350.1.13.10 4.2.7.2.686 [id number] [facility] 2021-07-27 12:08:00 2021-07-27 12:42:00 Surgery Lotus Lee [facility] [place] 1.2840.114 350.1.13.10 4.2.7.2.686 [id number] [facility] 2021-07-26 10:18:32 2021-07-26 10:33:32 Laboratory Only Only, Adc Test Lotus Lee [facility] 1.2840.114 350.1.13.10 4.2.7.2.686 [id number] [facility] 2021-07-26 10:15:00 2021-07-26 10:15:00 Outpatient R LOTUS LEE [facility] [id number] [facility] 2021-06-09 18:24:00 2021-06-09 19:49:00 Emergency Monique Simeon [facility] 1.2.840.114 350.1.13.10 4.2.7.2.686 [id number] [facility] 2021-06-09 00:00:00 2021-06-09 00:00:00 Orders Only Doctor Unassigned, [place] [facility] 1.2.840.114 350.1.13.10 4.2.7.2.686 [id number] [facility] 2021-03-14 09:10:00 2021-03-14 09:10:00 Outpatient OPAL VAZQUEZ [facility] [id number] [facility] 2021-02-21 12:50:00 2021-02-21 12:50:00 Outpatient [facility] [id number] [facility] 2021-01-12 06:27:00 2021-01-12 08:35:00 Hospital Encounter BryDiaz [facility] 1.2.840.114 350.1.13.10 4.2.7.2.686 [id number] [facility] 2021-01-12 07:30:00 2021-01-12 08:14:00 Surgery [place] [facility] 1.2.840.114 350.1.13.10 4.2.7.2.686 [id number] [facility] 2021-01-12 00:00:00 2021-01-12 00:00:00 Orders Only Doctor Unassigned, [place] [facility] 1.2.840.114 350.1.13.10 4.2.7.2.686 [id number] [facility] 2021-01-11 00:00:00 2021-01-11 00:00:00 Orders Only Doctor Unassigned, [place] [facility] 1.2.840.114 350.1.13.10 4.2.7.2.686 [id number] [facility] 2021-01-10 12:39:08 2021-01-10 12:54:08 Laboratory Only Only, Adc Test [place] [facility] 1.2.840.114 350.1.13.10 4.2.7.2.686 [id number] [facility] 2021-01-10 12:30:00 2021-01-10 12:39:00 Hospital Encounter Diaz Londono [facility] 1.2.840.114 350.1.13.10 4.2.7.2.686 [id number] [facility] 2021-01-10 12:00:00 2021-01-10 12:00:00 Outpatient R DIAZ LONDONO [facility] [id number] [facility] 2020-07-26 09:45:00 2020-07-26 23:59:00 Hospital Encounter Radiology [facility] 1.2.840.114 350.1.13.10 4.2.7.2.686 [id number] [facility] 2020-07-26 00:00:00 2020-07-26 00:00:00 Outpatient R RADIOLOGY [facility] [id number] [facility] 2020-07-26 00:00:00 2020-07-26 00:00:00 Orders Only Doctor Unassigned, [place] [facility] 1.2.840.114 350.1.13.10 4.2.7.2.686 [id number] [facility] 2020-06-29 07:36:00 2020-06-29 09:48:00 Emergency Shanta Salguero [facility] 1.2.840.114 350.1.13.10 4.2.7.2.686 [id number] [facility] 2020-06-29 07:36:00 2020-06-29 07:36:00 Emergency X [facility] ERT [id number] [facility] Results Test Description Test Time Test Comments Results Result Comments Source XR CHEST 2 VW 2024-06 23:44:3 5 EXAM: XR CHEST 2 VW COMPARISON: Chest radiograph dated 05/10/2024. HISTORY: Acute cough ? TECHNIQUE: PA and lateral views of the chest were obtained. FINDINGS: No focal consolidation is identified. No pleural effusion or pneumothoraxis seen. Interstitial prominence at both lung bases. The cardiomediastinalsilhouette is unremarkable.Spinal stimulator is seen. No acute osseous abnormalities. [facility] XR CHEST 2 VW 2024-05 15:07:2 4 ORDERING PROVIDER: KINGSLEY OWEN TWO VIEW CHEST RADIOGRAPH. DATE: 05/10/2024 CLINICAL INDICATIONS: + covid, cough COMPARISON: 12/27/2022 FINDINGS: ?No pneumonia. No pleural effusion seen. ?No pneumothorax seen.Heart size within normal limits. Cervical spine fusion plate. Prior lumbarspine surgery. Stimulator lead in the thoracic spine central canal. [facility] ([id number][facility]2024-[facility]-10 14:08:24* Test Item Value Reference Range Interpretation Comme nts NA (test code = 5622113230) 142 mmol/L 135-145 K (test code = 6819152664) 4.0 mmol/L 3.5-5.0 CL (test code = 9535269264) 104 mmol/L 98-108 CO2 TOTAL (test code = 5655819099) 26 mmol/L 23-31 AGAP (test code = 0262888092) 12 2-16 BUN (test code = 5249595490) 17 mg/dL 7-23 GLUCOSE (test code = 7732915849) 114 mg/dL 70-110 H CREATININE (test code = 2160-0) 1.17 mg/dL 0.50-1.04 H TOTAL BILI (test code = 4991750594) 1.0 mg/dL 0.1-1.1 CALCIUM (test code = 7895518338) 8.8 mg/dL 8.6-10.6 T PROTEIN (test code = 5901983944) 8.1 g/dL 6.3-8.2 ALBUMIN (test code = 4396535266) 4.4 g/dL 3.5-5.0 ALK PHOS (test code = 6583202080) 84 U/L 34-122 ALTv (test code = 1742-6) 27 U/L 5-35 AST(SGOT) (test code = 0501434147) 25 U/L 13-40 eGFR (test code = 30602-3) 49.1 mL/min/1.73m2 CKD-EPI eGFR (2020). Assuming creatinine has been stable day-to-day for at least three months, the eGFR indicates Category G3a (45 - 59 mL/min/1.73 m2) Lab Interpretation (test code = 43897-0) Abnormal [facility] WITH [id number] 13:56:02* Test Item Value Reference Range Interpretation Comme nts WBC (test code = 6690-2) 9.46 4.30-11.10 RBC (test code = 789-8) 4.14 3.93-5.25 HGB (test code = 718-7) 13.3 g/dL 11.6-15.0 HCT (test code = 4544-3) 39.2 % 35.7-45.2 MCV (test code = 787-2) 94.7 fL 80.6-95.5 MCH (test code = 785-6) 32.1 pg 25.9-32.8 MCHC (test code = 786-4) 33.9 g/dL 31.6-35.1 RDW-SD (test code = 54809-6) 47.7 fL 39.0-49.9 RDW-CV (test code = 788-0) 13.6 % 12.0-15.5 PLT (test code = 777-3) 324 166-358 MPV (test code = 95260-2) 9.8 fL 9.5-12.9 NRBC/100 WBC (test code = 1042228274) 0.0 0.0-10.0 NRBC x10^3 (test code = 5883038979) See_Comment [Automated messa ge] The system which generated this result transmitted reference range: 10*3/?L. The reference range was not used to interpret this result as normal/abnormal. GRAN MAT (NEUT) % (test code = 770-8) 77.5 % IMM GRAN % (test code = 4867708270) 0.40 % LYMPH % (test code = 736-9) 14.4 % MONO % (test code = 5905-5) 7.5 % EOS % (test code = 713-8) 0.0 % BASO % (test code = 706-2) 0.2 % GRAN MAT x10^3(ANC) (test code = 5497533874) 7.33 10*3/uL 1.88-7.09 H IMM GRAN x10^3 (test code = 4338531441) 0.04 10*3/uL 0.00-0.06 LYMPH x10^3 (test code = 731-0) 1.36 10*3/uL 1.32-3.29 MONO x10^3 (test code = 742-7) 0.71 10*3/uL 0.33-0.92 EOS x10^3 (test code = 711-2) 0.03-0.39 L BASO x10^3 (test code = 704-7) 0.01-0.07 Lab Interpretation (test code = 53742-0) [facility] [id number] 21:32:43EXAM: ?XR Right Knee, 3 Views CLINICAL HISTORY: ?73 years Female right knee pain ? TECHNIQUE: ?Three views of the right knee. COMPARISON: ?No relevant prior studies available. FINDINGS: ?BONES/JOINTS: ?Mild degenerative change with small bone spur formation. No acute fracture. ?No dislocation. ?SOFT TISSUES: ?Unremarkable.[facility] GLUCOSE (AUTOMATED) 2024-01-03 13:20:24* Test Item Value Reference Range Interpretation Comme nts POCT GLU (test code = 4842677642) 131 mg/dL 70-110 H Lab Interpretation (test cod e = 92988-0) Abnormal [facility] GLUCOSE (AUTOMATED)2024-01-03 13:20:24* Test Item Value Reference Range Interpretation Comme nts POCT GLU (test code = 1012766073) 131 mg/dL 70-110 H Lab Interpretation (test cod e = 58807-7) Abnormal [facility] GLUCOSE (AUTOMATED)2023-12-20 12:28:54* Test Item Value Reference Range Interpretation Comme nts POCT GLU (test code = 1230781118) 131 mg/dL 70-110 H Lab Interpretation (test cod e = 62322-5) Abnormal [facility] GLUCOSE (AUTOMATED)2023-12-20 12:28:54* Test Item Value Reference Range Interpretation Comme nts POCT GLU (test code = 8105592065) 131 mg/dL 70-110 H Lab Interpretation (test cod e = 77763-7) Abnormal [facility] [id number] 21:06:24* Test Item Value Reference Range Interpretation Comme nts TROPONIN I (test code = 3558490573) 0.002 ng/mL <=0.034 JACKSON (test code = JACKSON) Reference (Normal) Range (defined by the 99th percentile reference limit): <= 0.034 ng/mL Note: Cardiac troponin begins to rise 3-4 hours after the onset of ischemia. Repeat in 4-6 hours if the sample was drawn within 3-4 hours of the onset of the symptom and found normal. Diagnosis of myocardial injury is made with acute changes in cTn concentrations with at least one serial sample above the 99th percentile upper reference limit (URL), taken together with the patient's clinical presentation. Biotin has been reported to cause a negative bias, interpret results relative to patient's use of biotin. Lab Interpretation (test code = 23090-0) Normal [facility]-TERMINAL [id number] 21:03:06* Test Item Value Reference Range Interpretation Comme nts NT-proBNP (test code = 2805680523) 159 pg/mL <=125 H JACKSON (test code = JACKSON) Biotin has been reported to cause a negative bias, interpret results relative to patient's use of biotin. Lab Interpretation (test code = 99019-4) Abnormal [facility] MET[facility]OLIC PANEL ([id number])2022-12-27 20:55:43* Test Item Value Reference Range Interpretation Comme nts NA (test code = 2303730415) 142 mmol/L 135-145 K (test code = 7348251113) 4.1 mmol/L 3.5-5.0 CL (test code = 4249479444) 107 mmol/L 98-108 CO2 TOTAL (test code = 5671287510) 27 mmol/L 23-31 AGAP (test code = 4524654653) 8 2-16 BUN (test code = 2720848098) 25 mg/dL 7-23 H GLUCOSE (test code = 4754370630) 149 mg/dL 70-110 H CREATININE (test code = 1877211149) 1.30 mg/dL 0.50-1.04 H TOTAL BILI (test code = 3560770251) 0.6 mg/dL 0.1-1.1 CALCIUM (test code = 9635385467) 8.9 mg/dL 8.6-10.6 T PROTEIN (test code = 2503227742) 7.5 g/dL 6.3-8.2 ALBUMIN (test code = 8395532989) 4.5 g/dL 3.5-5.0 ALK PHOS (test code = 7921645203) 61 U/L 34-122 ALTv (test code = 1742-6) 29 U/L 5-35 AST(SGOT) (test code = 5000556850) 28 U/L 13-40 eGFR (test code = 0853587575) 40.3 mL/min/1.73m2 JACKSON (test code = JACKSON) Association of Glomerular Filtration Rate (GFR) and Staging of Kidney Disease* + --+ --+ ------+| GFR (mL/min/1.73 m2) ?| With Kidney Damage ?| ?Without Kidney Damage+ --------+ --------+ +| ?>90 ?| ?Stage one ?| ? Normal ?+ ---+ ---+ -------+| ?60-89 ?| ?Stage two ?| ? Decreased GFR ? + --+ --+ ------+| ?30-59 ?| ?Stage three ?| ? Stage three ? + --+ --+ ------+| ?15-29 ?| ?Stage four ? | ? Stage four ?+ ---+ ---+ -------+| ?<15 (or dialysis) ? ?| ?Stage five ? | ? Stage five ?+ ---+ ---+ -------+ *Each stage assumes the associated GFR level has been in effect for at least three months. ?Stages 1 to 5, with or without kidney disease, indicate chronic kidney disease. Notes: Determination of stages one and two (with eGFR >59mL/min/1.73 m2) requires estimation of kidney damage for at least three months as defined by structural or functional abnormalities of the kidney, manifested by either:Pathological abnormalities or Markers of kidney damage (including abnormalities in the composition of the blood or urine or abnormalities in imaging tests). Lab Interpretation (test code = 24932-2) Abnormal [facility] WITH [id number] 20:44:22* Test Item Value Reference Range Interpretation Comme nts WBC (test code = 6690-2) 7.83 See_Comment [Automated messa ge] The system which generated this result transmitted reference range: 4.30 - 11.10 10*3/?L. The reference range was not used to interpret this result as normal/abnormal. RBC (test code = 789-8) 4.40 See_Comment [Automated messa ge] The system which generated this result transmitted reference range: 3.93 - 5.25 10*6/?L. The reference range was not used to interpret this result as normal/abnormal. HGB (test code = 718-7) 13.7 g/dL 11.6-15.0 HCT (test code = 4544-3) 40.5 % 35.7-45.2 MCV (test code = 787-2) 92.0 fL 80.6-95.5 MCH (test code = 785-6) 31.1 pg 25.9-32.8 MCHC (test code = 786-4) 33.8 g/dL 31.6-35.1 RDW-SD (test code = 24915-9) 45.1 fL 39.0-49.9 RDW-CV (test code = 788-0) 13.2 % 12.0-15.5 PLT (test code = 777-3) 334 See_Comment [Automated [place] ge] The system which generated this result transmitted reference range: 166 - 358 10*3/?L. The reference range was not used to interpret this result as normal/abnormal. MPV (test code = 57581-3) 9.5 fL 9.5-12.9 NRBC/100 WBC (test code = 2345719425) 0.0 See_Comment [Automated [place] ssage] The system which generated this result transmitted reference range: 0.0 - 10.0 /100 WBCs. The reference range was not used to interpret this result as normal/abnormal. NRBC x10^3 (test code = 9531681110) See_Comment [Automated messa ge] The system which generated this result transmitted reference range: 10*3/?L. The reference range was not used to interpret this result as normal/abnormal. GRAN MAT (NEUT) % (test code = 770-8) 48.8 % IMM GRAN % (test code = 1099265142) 0.40 % LYMPH % (test code = 736-9) 33.8 % MONO % (test code = 5905-5) 14.6 % EOS % (test code = 713-8) 1.9 % BASO % (test code = 706-2) 0.5 % GRAN MAT x10^3(ANC) (test code = 7107332752) 3.82 10*3/uL 1.88-7.09 IMM GRAN x10^3 (test code = 2801905466) 0.03 10*3/uL 0.00-0.06 LYMPH x10^3 (test code = 731-0) 2.65 10*3/uL 1.32-3.29 MONO x10^3 (test code = 742-7) 1.14 10*3/uL 0.33-0.92 H EOS x10^3 (test code = 711-2) 0.15 10*3/uL 0.03-0.39 BASO x10^3 (test code = 704-7) 0.04 10*3/uL 0.01-0.07 Lab Interpretation (test code = 42476-7) Abnormal [facility] History and Physical Notes Date/Time Note Provider Source 2024-01-03 08:29:20 H&P was reviewed and patient was examined and there was no change in patients condition. [facility] 2023-12-20 07:45:18 H&P was reviewed and patient was examined and there was no change in patients condition. [facility] Procedure Notes Date/Time Note Provider Source 2024-01-03 08:30:10 PROCEDURE: CATARACT EXTRACTION WITH INTRAOCULAR IMPLANT DATE OF SURGERY:01/03/2024 SURGEON: Ranjit Mckeon MD PROCEDURE: Extracapsular cataract extraction with intraocular lens implantation, via phacoemulsification of the Left eye. Malyugin ring PREOPERATIVE DIAGNOSIS: Cataract Left eye. Miosis POSTOPERATIVE DIAGNOSIS: Cataract Left eye. Miosis ANESTHESIA: Local MAC ESTIMATED BLOOD LOSS: None PROCEDURE IN DETAIL: The patient was brought to the operating room where they were given IV sedation. The patient was then given a Retrobulbar injection with a 50-50 mixture of Marcaine 0.75% and Xylocaine 2%, 3-1/2 mL to the Left eye. They were then prepped and draped in the usual sterile manner. A lid speculum was placed in the Left eye. BSS was placed on the cornea. A crescent blade was used to create a 2.2 mm incision at the corneal limbus at the 1:00 position. A 15 blade was used to create a stab incision at the corneal limbus at the 10:00 position. A keratome was used to enter the anterior chamber. The anterior chamber was filled with Viscoat. A malyugin ring was placed over the pupil margin. A cystotome needle was used to start the capsulorrhexis. Utrata forceps completed a 360 degree curvilinear capsulorrhexis. BSS on a blunt cannula was used to hydrodissect and hydrodelineate the lens nucleus and the lens freely rotated. Phacoemulsification was used to remove the nuclear material in a divide and conquer technique. The irrigation and aspiration were used to remove the remaining cortical material. Provisc on a blunt cannula was injected into the posterior capsule and anterior chamber. A Sy60WF 27.5 diopter acrylic lens was injected into the posterior capsule through the original corneal scleral incision. The malyugin was removed. The remaining provisc was irrigated and aspirated from the eye. BSS on a blunt cannula was used to inflate the anterior chamber. A Weck-Yolette sponge was used to check the wound for leaks and none was found. A combination of dexamethasone and antibiotics was injected into the conjunctiva adjacent to the original corneal scleral wound. The lid speculum was removed from the eye. Tobradex was placed on the conjunctiva. The eye was patched and shielded. The patient was discharged in the operating room in good condition. INTRAOPERATIVE COMPLICATIONS: None INTRAOPERATIVE COMPLICATIONS: None PATIENT NAME: Galina Dupont [facility] REC#: [id number] VISIT #: ROOM #: [facility] [address] [place] [address] T [facility] 2024-01-03 08:29:45 Brief Operative Note Date Of Operation: 01/03/2024 Surgeons Name: RANJIT MCKEON Pre Operative Diagnosis: CATARACT LEFT EYE Post Operative Diagnosis: CATARACT LEFT EYE Operation Performed: UNDER LOCAL ANESTHESIA THE EYE WAS/WERE EXPOSED USING A LID SPECULUM. ENTRY INTO THE EYE THROUGH A MINIMAL INCISION WS MADE FOR THE SURGICAL REMOVAL OF THE NATURAL LENS (CATARACT) AND AN ARTIFICIAL INTRAOCULAR LENS IMPLANT WAS INSERTED WITHOUT COMPLICATION. Patient's Condition: PATIENT WAS DISCHARGED FROM THE FACILITY IN STABLE CONDITION. PLEASE SEE THE PATIENT DISCHARGE INSTRUCTIONS. Please see dictated operative report for additional detail. [facility] 2023-12-20 07:55:43 PROCEDURE: CATARACT EXTRACTION WITH INTRAOCULAR IMPLANT DATE OF SURGERY:12/20/2023 SURGEON: Ranjit Mckeon MD PROCEDURE: Extracapsular cataract extraction with intraocular lens implantation, via phacoemulsification of the Right eye. PREOPERATIVE DIAGNOSIS: Cataract Right eye. POSTOPERATIVE DIAGNOSIS: Cataract Right eye. ANESTHESIA: Local MAC ESTIMATED BLOOD LOSS: None PROCEDURE IN DETAIL: The patient was brought to the operating room where they were given IV sedation. The patient was then given a Retrobulbar injection with a 50-50 mixture of Marcaine 0.75% and Xylocaine 2%, 3-1/2 mL to the Right eye. They were then prepped and draped in the usual sterile manner. A lid speculum was placed in the Right eye. BSS was placed on the cornea. A crescent blade was used to create a 2.2 mm incision at the corneal limbus at the 1:00 position. A 15 blade was used to create a stab incision at the corneal limbus at the 10:00 position. A keratome was used to enter the anterior chamber. The anterior chamber was filled with Viscoat. A cystotome needle was used to start the capsulorrhexis. Utrata forceps completed a 360 degree curvilinear capsulorrhexis. BSS on a blunt cannula was used to hydrodissect and hydrodelineate the lens nucleus and the lens freely rotated. Phacoemulsification was used to remove the nuclear material in a divide and conquer technique. The irrigation and aspiration were used to remove the remaining cortical material. Provisc on a blunt cannula was injected into the posterior capsule and anterior chamber. A Sy60WF 24.5 diopter acrylic lens was injected into the posterior capsule through the original corneal scleral incision. The remaining provisc was irrigated and aspirated from the eye. BSS on a blunt cannula was used to inflate the anterior chamber. A Weck-Yolette sponge was used to check the wound for leaks and none was found. A combination of dexamethasone and antibiotics was injected into the conjunctiva adjacent to the original corneal scleral wound. The lid speculum was removed from the eye. Tobradex was placed on the conjunctiva. The eye was patched and shielded. The patient was discharged in the operating room in good condition. INTRAOPERATIVE COMPLICATIONS: None PATIENT NAME: Galina Dupont [facility] REC#: [id number] VISIT #: ROOM #: [facility] [address] [place] [address] [employer] [facility] [employer] 2023-12-20 07:55:25 Brief Operative Note Date Of Operation: 12/20/2023 Surgeons Name: RANJIT MCKEON MD Pre Operative Diagnosis: CATARACT RIGHT EYE Post Operative Diagnosis: CATARACT RIGHT EYE Operation Performed: UNDER LOCAL ANESTHESIA THE EYE WAS/WERE EXPOSED USING A LID SPECULUM. ENTRY INTO THE EYE THROUGH A MINIMAL INCISION WAS MADE FOR THE SURGICAL REMOVAL OF THE NATURAL LENS (CATARACT) AND AN ARTIFICIAL INTRAOCULAR LENS IMPLANT WAS INSERTED WITHOUT COMPLICATION. EBL: NONE Patient's Condition: PATIENT WAS DISCHARGED FROM THE FACILITY IN STABLE CONDITION. PLEASE SEE THE PATIENT DISCHARGE INSTRUCTIONS. Please see dictated operative report for additional detail. [employer] [facility] [employer]"
[2024-11-08 17:38] LABS: Absolute Basophils 0.1 K/uL (0-0.5); Absolute Neutrophil 6.6 K/uL (1.8-8.0); Eosinophils % 0.5 % (0-4.4); Hematocrit 35.4 % (36.0-45.0); Hemoglobin 12.6 g/dL (12.0-15.0); Lymphocytes % 20.4 % (15.3-44.8); MCH 32.7 pg (27.0-35.0); MCHC 35.6 g/dL (32.0-36.0); MCV 91.8 fL (80-100); MPV 8.4 fL (7.6-11.3); Neutrophils % 68.1 % (41.7-73.7); Platelets 304 thou/uL (152-406); RBC Red Blood Cell Count 3.86 M/uL (3.86-4.86); Red Cell Distribution Width 13.5 % (12.1-15.2)
[2024-11-08 17:48] LABS: PT Prothrombin Time 11.9 SECONDS (9.4-12.5); PTT, Activated Partial Thromb 33.8 SECONDS (24.3-36.9); Protime INR 1.13
[2024-11-08 17:52] LABS: Anion Gap 7.9 mEq/L (5.0-15.0); Potassium 3.9 mEq/L (3.5-5.1)
--- NOTE | 2024-11-08 18:42 | EDPHYS ---
Physician Documentation [facility] Name: Ginna Dupont Age: 74 yrs Sex: Female : 1950 Arrival Date: 11/08/2024 Time: 16:17 Bed 6 Private MD: ED Physician Sean Cross HPI: 11/08 19:02 This 74 yrs old Female presents to ER via Ambulatory with complaints of Nose Bleed. rn 19:02 The patient presents with a nose bleed, that is apparently anterior, and the bleeding rn resolved prior to arrival. Onset: The symptoms/episode began/occurred this morning. Modifying factors: The symptoms are alleviated by nothing. the symptoms are aggravated by blowing nose. Severity of symptoms: At their worst the symptoms were mild in the emergency department the symptoms have resolved. The patient has not experienced similar symptoms in the past. Patient reports had 3 nosebleeds so far today. Denies any trauma. First 1 bled for a little while and stopped then reoccurred with coughing. Went to clinic and they cauterized her bleed. Returns because of small amount of bleed prior to arrival that has since resolved. Currently no bleeding. Does not take any blood thinners. Denies shortness of breath.. Historical: - Allergies: 16:39 Alprazolam; leg swelling; hb 16:39 adhesive tape; hb - PMHx: 16:39 Kidney disease; DM; hb - PSHx: 16:40 Nose; Neck x 2; Back; Carpal Tunnel - Bryant; Right Hip; Appendectomy; hb - Immunization history:: Adult Immunizations up to date. - Infectious Disease History:: Denies. - Social history:: Smoking status: Patient denies any tobacco usage or history of. - Family history:: not pertinent. - Hospitalizations: : No recent hospitalization is reported. ROS: 19:02 Constitutional: Negative for fever, chills, and weight loss, ENT: Positive for rn nosebleed Cardiovascular: Negative for chest pain, palpitations, and edema, Respiratory: Negative for shortness of breath, cough, wheezing, and pleuritic chest pain, Abdomen/GI: Negative for abdominal pain, nausea, vomiting, diarrhea, and constipation, Exam: 19:02 Constitutional: This is a well developed, well nourished patient who is awake, alert, rn and in no acute distress. ENT: No active bleeding noted. No dried blood noted in nares. No evidence of trauma. No septal hematoma. No drainage. No sinus pressure. Vital Signs: 16:37 BP 128 / 66; Pulse 88; Resp 16; Temp 98.2; Pulse Ox 99% on R/A; Weight 78.93 kg; Height hb 4 ft. 11 in. ; Pain 5/10; 16:37 Body Mass Index 35.14 (78.93 kg, 149.86 cm) hb 16:37 Pain Scale: Adult hb MDM: 16:43 Medical Screening Exam initiated rn 19:02 Differential diagnosis: spontaneous epistaxis. Data reviewed: vital signs, nurses rn notes, and as a result, I will discharge patient. Counseling: I had a detailed discussion with the patient and/or guardian regarding the historical points, exam findings, and any diagnostic results supporting the discharge/admit diagnosis, the need for outpatient follow up, to return to the emergency department if symptoms worsen or persist or if there are any questions or concerns that arise at home. Special discussion: I discussed with the patient/guardian in detail that at this point there is no indication for admission to the hospital. It is understood, however, that if the symptoms persist or worsen the patient needs to return immediately for re-evaluation. 11/08 16:48 Order name: CBC with Diff; Complete Time: 17:54 rn 11/08 16:48 Order name: Basic Metabolic Panel; Complete Time: 17:54 rn 11/08 16:48 Order name: Protime (+inr); Complete Time: 17:54 rn 11/08 16:48 Order name: Ptt, Activated; Complete Time: 17:54 rn 11/08 16:48 Order name: IV Start; Complete Time: 17:28 rn Administered Medications: 18:49 Drug: Zachariah-Synephrine Intranasal [place] 0.5 % 2 sprays Intranasal once Route: Intranasal; ld1 Site: both nares; Disposition Summary: 11/08/24 18:41 Discharge Ordered Notes: Location: Home rn Problem: new rn Symptoms: have improved rn Condition: Stable rn Diagnosis - Epistaxis rn Followup: rn - With: Private Physician - When: As needed - Reason: Recheck today's complaints, Re-evaluation by your physician Discharge Instructions: - Discharge Summary Sheet rn - Nosebleed, Adult rn Forms: - Medication Reconciliation Form rn - Antibiotic clinical staff rn - Prescription Opioid Use rn - Patient Portal Instructions rn - Leadership Thank You Letter rn Signatures: Dispatcher [employer] EDMS Sean Cross MD MD rn Baxter, Heather, RN RN Diamond Pichardo RN RN ld1 Corrections: (The following items were deleted from the chart) 16:41 16:39 Allergies: No Known Allergies; hb 16:48 16:48 CBC+H.LAB.BRZ ordered. EDMS EDMS 16:48 16:48 BASIC METABOLIC PANEL+C.LAB.BRZ ordered. EDMS EDMS 16:48 16:48 PROTIME (+INR)+COAG.LAB.BRZ ordered. EDMS EDMS 16:48 16:48 PTT, ACTIVATED+COAG.LAB.BRZ ordered. EDMS EDMS
--- NOTE | 2024-11-08 18:42 | ER ---
Nurse's Notes [facility] Name: Ginna Dupont Age: 74 yrs Sex: Female : 1950 Arrival Date: 11/08/2024 Time: 16:17 Bed 6 Private MD: Diagnosis: Epistaxis Presentation: 11/08 16:37 Chief complaint: Nosebleed x 3 today, cauterized at clinic this morning, not bleeding hb at this time. Also c/o blood in urine and black diarrhea this afternoon. Coronavirus screen: At this time, the client does not indicate any symptoms associated with coronavirus-19. Ebola Screen: No symptoms or risks identified at this time. Initial Sepsis Screen: Does the patient meet any 2 criteria? No. Patient's initial sepsis screen is negative. Does the patient have a suspected source of infection? No. Patient's initial sepsis screen is negative. Risk Assessment: Do you want to hurt yourself or someone else? Patient reports no desire to harm self or others. Onset of symptoms was November 08, 2024. 16:37 Method Of Arrival: Ambulatory hb 16:37 Acuity: JESSIE 3 hb Triage Assessment: 16:45 General: Appears in no apparent distress. Behavior is cooperative, appropriate for age, bp anxious. Pain: Denies pain. EENT: No deficits noted. Neuro: No deficits noted. Cardiovascular: Rhythm is sinus rhythm. Respiratory: No deficits noted. GI: No signs and/or symptoms were reported involving the gastrointestinal system. : No signs and/or symptoms were reported regarding the genitourinary system. Derm: Skin is pale, Skin temperature is cool. Musculoskeletal: No deficits noted. Historical: - Allergies: 16:39 Alprazolam; leg swelling; hb 16:39 adhesive tape; hb - PMHx: 16:39 Kidney disease; DM; hb - PSHx: 16:40 Nose; Neck x 2; Back; Carpal Tunnel - Bryant; Right Hip; Appendectomy; hb - Immunization history:: Adult Immunizations up to date. - Infectious Disease History:: Denies. - Social history:: Smoking status: Patient denies any tobacco usage or history of. - Family history:: not pertinent. - Hospitalizations: : No recent hospitalization is reported. Screenin:45 [facility] ED Fall Risk Assessment (Adult) History of falling in the last 3 months, bp including since admission No falls in past 3 months (0 pts) Confusion or Disorientation No (0 pts) Intoxicated or Sedated No (0 pts) Impaired Gait No (0 pts) Mobility Assist Device Used No (0 pt) Altered Elimination No (0 pt) Score/Fall Risk Level 0 - 2 = Low Risk Oriented to surroundings. Abuse screen: Denies threats or abuse. Denies injuries from another. Nutritional screening: No deficits noted. Tuberculosis screening: No symptoms or risk factors identified. Assessment: 16:45 General: Appears in no apparent distress. comfortable, Behavior is cooperative, bp appropriate for age, anxious. 18:49 Reassessment: Patient appears in no apparent distress at this time. No changes from ld1 previously documented assessment. Patient and/or family updated on plan of care and expected duration. Pain level reassessed. Patient is alert, oriented x 3, equal unlabored respirations, skin warm/dry/pink. Vital Signs: 16:37 BP 128 / 66; Pulse 88; Resp 16; Temp 98.2; Pulse Ox 99% on R/A; Weight 78.93 kg; Height hb 4 ft. 11 in. ; Pain 5/10; 16:37 Body Mass Index 35.14 (78.93 kg, 149.86 cm) hb 16:37 Pain Scale: Adult hb ED Course: 16:21 Patient arrived in ED. al6 16:39 Triage completed. hb 16:40 Lyle Brown, RN is Primary Nurse. bp 16:41 Arm band placed on. hb 16:42 Sean Cross MD is Attending Physician. rn 16:45 Patient has correct armband on for positive identification. bp 17:28 Inserted saline lock: 20 gauge in right forearm, using aseptic technique. Blood bp collected. Flushed with 10 mL NS. 18:49 No provider procedures requiring assistance completed. IV discontinued, intact, ld1 bleeding controlled, No redness/swelling at site. Administered Medications: 18:49 Drug: Zachariah-Synephrine Intranasal [place] 0.5 % 2 sprays Intranasal once Route: Intranasal; ld1 Site: both nares; Medication: 16:45 VIS not applicable for this client. bp Outcome: 18:41 Discharge ordered by MD. rn 18:50 Discharged to home ambulatory, ld1 18:50 Condition: stable 18:50 Discharge instructions given to patient, Instructed on discharge instructions, follow up and referral plans. Demonstrated understanding of instructions, follow-up care, 18:50 Patient left the ED. ld1 Signatures: Sean Cross MD MD rn Baxter, Heather RN RN Lyle Brown RN RN bp Sims, Lauren, RN RN ld1 Almaz Lora6 Corrections: (The following items were deleted from the chart) 16:41 16:39 Allergies: No Known Allergies; [facility]
[2024-11-08 18:54] VITALS: BP 128/66; TEMP 98.2; O2SAT 99
== END 2024-11-08 18:50 | disposition home or self-care (01) ==
LOC: ER 16:17
DX: R04.0 Epistaxis (principal)
CPT/HCPCS: 36415; 80048; 85025; 85610; 85730; 99284